=== PATIENT | male | born 1965 | race Caucasian/White ===

== ENCOUNTER 2024-10-22 09:04 | Outpatient (OUT) | payer OTHER, SELFPAY ==
--- OUTSIDE RECORDS SUMMARY | 2024-10-10 11:45 | XMS_ITS | Encounter Summary ---
Author Organization [facility] Address [address] [place] [address] Care Team Providers Care Clay House Worker Name Role Phone Mauricio Mccrary MD Primary Care Provider [phone] Reason for Visit * Reason Comments Follow-up polycythemia Other Patient states two c days after he had his phlebotomy he states he ended up in the ER with heaviness in legs and stiffness in his feet and lightheaded ness Leg Problem Patient states he balderas s been having leg weakness Encounter Details Date Type Department Care Team (Late st Contact Info) Description 10/10/2024 11:45 AM EDT Office Visit [facility] Part of [address] [address] Jacob Hall MD [address] [place] [address] Polycythemia (Primary Dx) Social History Tobacco Use Types Packs/Day Years Used Date Smoking Tobacco: Every Day Cigarettes Started: 2020; Last attempted to quit: 1978 Cigars Smokeless Tobacco: Never Comments:Occasional cigars c urrently Alcohol Use Standard Drinks/Week Comments Never 0 (1 standard drink = 0.6 oz pur e alcohol) [facility] Utilities Answer Date Recorded In the past 12 months has th e electric, gas, oil, or water company threatened to shut off services in your home? No 08/03/2024 AUDIT-C Answer Date Recorded Q1: How often do you have a drink containing alcohol? Never 09/20/2024 Q2: How many drinks containi ng alcohol do you have on a typical day when you are drinking? Patient does not drink Q3: How often do you have si x or more drinks on one occasion? Never 09/20/2024 PHQ-2 Answer Date Recorded PHQ-9 Total Score 0 08/03/2024 Hunger Vital Sign Answer Date Recorded Within the past 12 months, y ou worried that your food would run out before you got the money to buy more. Never true 08/04/19 25 Within the past 12 months, t he food you bought just didn't last and you didn't have money to get more. Never true 08/03/2024 PRAPARE - Transportation Answer Date Re corded In the past 12 months, has l ack of transportation kept you from medical appointments or from getting medications? No 07/24 In the past 12 months, has l ack of transportation kept you from meetings, work, or from getting things needed for daily living? No 08/03/2024 Housing Stability Vital Sign Answer Jonel e Recorded In the last 12 months, was t here a time when you were not able to pay the mortgage or rent on time? No 08/03/2024 In the past 12 months, how m any times have you moved where you were living? 1 08/03/2024 At any time in the past [address] [facility], were you homeless or living in a fpc (including now)? No 08/03/2024 Food Insecurity Answer Date Recorded Within the past 12 months, y ou worried that your food would run out before you got the money to buy more. 1 08/03/2024 Within the past 12 months, t he food you bought just didn't last and you didn't have money to get more. 1 08/03/2024 Interpersonal Safety Domain Source: IP Abuse Scr eening Answer Date Recorded Physical abuse Denies 07/13/2024 Verbal abuse Denies 07/13/2024 Emotional abuse Denies 07/13/2024 Financial abuse Denies 07/13/2024 Sexual abuse Denies 07/13/2024 Sex and Gender Information Value Date Recorded Sex Assigned at Not on file Legal Sex Male 11:47 AM EST Gender Identity Not on file Sexual Orientation Not on file documented as of this encounter Last Filed Vital Signs Vital Sign Reading Time Taken Comments Blood Pressure 153/99 10/10/2024 12:36 PM EDT Pulse 105 10/10/2024 12:36 PM EDT Temperature 36.7 C (98 F) 10/10/2024 12:36 PM EDT Respiratory Rate 18 10/10/2024 12:36 PM EDT Oxygen Saturation - - Inhaled Oxygen Concentration - - Weight 78.9 kg (174 lb) 10/10/2024 12:36 PM EDT Height - - Body Mass Index 26.46 09/20/2024 9:52 AM EDT documented in this encounter Patient Instructions * Patient Instructions* Jacob Hall MD - 10/10/2024 1:02 PM EDT Therapeutic phlebotomy once soon RV 2 months with CBC and carboxyhemoglobin level before RV documented in this encounter Progress Notes * Jacob Hall MD - 10/14/2024 7:18 PM EDT Images from the original note were not included. _ Chief Complaint Patient presents with Follow-up polycythemia Other Patient states two cdays after he had his phlebotomy he states he ended up in the ER with heavinessin legs and stiffness in his feet and lightheaded ness Leg Problem Patient states he has been having leg weakness DIAGNOSIS: Severe polycythemia. Likely reactive polycythemia. Chronic heavy tobacco abuse. 3 to 4 packs/day for 40 years. Quit 3 years ago. Current cigar smoker. Chest pain. Multiple comorbidities as listed CURRENT THERAPY: Therapeutic phlebotomy Advised to quit smoking BRIEF CASE HISTORY: Mr. Sanchez Brasher is a very pleasant 59 y.o. male with history of multiple co morbidities as listed. Patient is referred for evaluation and further management of polycythemia. Patient is having increasing weakness and fatigue over the last year. Patient had multiple cardiac events. He had VA and had cardiac intervention at the [facility]. During his workup he was noted to have elevated hemoglobin level last year. Follow-up labs recently showed persistent elevation of red blood cells. Patient having increasing weakness and fatigue. He has occasional dizziness. He feels foggy brain. No visual disturbances. No numbness or weakness of the extremities. Patient used to smoke 3 to 4 packs/day for the last 40 years. He switched to cigars 3 years ago. Hequit alcohol as well.. INTERIM HISTORY: Seen for follow-up polycythemia. Workup showed normal erythropoietin and negative JAK2 gene mutation. He had therapeutic phlebotomy few times over the last month. He continued to have shortness of breath. No headaches. The patient complains of left-sided chest pain mainly in the left lower chest cage. No trauma. Painincreased with breathing. No hemoptysis. PAST MEDICAL HISTORY: has a past medical history of Carotid artery stenosis, CVA (cerebral vascularaccident) (HCC), DM (diabetes mellitus) (HCC), VA (myocardial infarction) (HCC), Neuropathy, and TIA (transient ischemic attack). PAST SURGICAL HISTORY: has a past surgical history that includes IR TRANSCATHETER PLACEMENT INTRAVASCULAR STENT COMMON CAROTID ARTERY OR INNOMINATE ARTERY (Left, 07/2023); Carotid endarterectomy (Left, 2017); angioplasty (Right, 2021); and Coronary angioplasty with stent. CURRENT MEDICATIONS: has a current medication list which includes the following prescription(s): aspirin, clopidogrel, rosuvastatin, losartan, metformin, and metoprolol succinate. ALLERGIES: is allergic to environmental/seasonal. FAMILY HISTORY: Brother had throat cancer. Otherwise negative for any hematological or oncological conditions. SOCIAL HISTORY: reports that he has been smoking cigars and cigarettes. He started smoking about 4 years ago. He has never used smokeless tobacco. He reports that he does not drink alcohol and does not use drugs. REVIEW OF SYSTEMS: General: Positive for weakness and fatigue. No unanticipated weight loss or decreased appetite. No fever or chills. Eyes: No blurred vision, eye pain or double vision. Ears: No hearing problems or drainage. No tinnitus. Throat: No sore throat, problems with swallowing or dysphagia. Respiratory: No cough, sputum or hemoptysis. No shortness of breath. No pleuritic chest pain. Cardiovascular: No chest pain, orthopnea or PND. No lower extremity edema. No palpitation. Gastrointestinal: No problems with swallowing. No abdominal pain or bloating. No nausea or vomiting. No diarrhea or constipation. No GI bleeding. Genitourinary: No dysuria, hematuria, frequency or urgency. Musculoskeletal: No muscle aches or pains. No limitation of movement. No back pain. No gait disturbance, No joint complaints. Dermatologic: No skin rashes or pruritus. No skin lesions or discolorations. Psychiatric: No depression, anxiety, or stress or signs of schizophrenia. No change in mood or affect. Hematologic: No history of bleeding tendency. No bruises or ecchymosis. No history of clotting problems. Infectious disease: No fever, chills or frequent infections. Endocrine: No polydipsia or polyuria. No temperature intolerance. Neurologic: No headaches or dizziness. No weakness or numbness of the extremities. No changes in balance, coordination, memory, mentation, behavior. Allergic/Immunologic: No nasal congestion or hives. No repeated infections. PHYSICAL EXAM: The patient is not in acute distress. Vital signs: Blood pressure (!) 153/99, pulse (!) 105, temperature 98 ??F (36.7 ??C), temperature source Temporal, resp. rate 18, weight 78.9 kg (174 lb). General appearance - well appearing, not in pain or distress Mental status - good mood, alert and oriented Eyes - pupils equal and reactive, extraocular eye movements intact Ears - bilateral TM's and external ear canals normal Nose - normal and patent, no erythema, discharge or polyps Mouth - mucous membranes moist, pharynx normal without lesions Neck - supple, no significant adenopathy Lymphatics - no palpable lymphadenopathy, no hepatosplenomegaly Chest - clear to auscultation, no wheezes, rales or rhonchi, symmetric air entry Heart - normal rate, regular rhythm, normal S1, S2, no murmurs, rubs, clicks or gallops Abdomen - soft, nontender, nondistended, no masses or organomegaly Neurological - alert, oriented, normal speech, no focal findings or movement disorder noted Musculoskeletal - no joint tenderness, deformity or swelling Extremities - peripheral pulses normal, no pedal edema, no clubbing or cyanosis Skin - normal coloration and turgor, no rashes, no suspicious skin lesions noted Review of Diagnostic data: Lab Results Component Value Date WBC 10.7 09/20/2024 HGB 18.5 (H) 09/20/2024 HCT 54.3 (HH) 09/20/2024 MCV 90.7 09/20/2024 PLT 237 09/20/2024 Chemistry Component Value Date/Time NA 137 09/20/2024 0953 K 4.2 09/20/2024 0953 CL 100 09/20/2024 0953 CO2 24 09/20/2024 0953 BUN 11 09/20/2024 0953 CREATININE 0.9 09/20/2024 0953 Component Value Date/Time CALCIUM 9.8 09/20/2024 0953 ALKPHOS 113 08/04/2024 0823 AST 16 08/04/2024 0823 ALT 15 08/04/2024 0823 BILITOT 0.5 08/04/2024 0823 @[facility] IMPRESSION: Severe polycythemia. Likely reactive polycythemia. Chronic heavy tobacco abuse. 3 to 4 packs/day for 40 years. Quit 3 years ago. Current cigar smoker. Chest pain. Multiple comorbidities as listed PLAN: Records, labs and images were reviewed and discussed with the patient. I explained to the patient the nature of this problem with polycythemia and underlying cause of management plan. Patient is symptomatic from polycythemia and he felt slightly better after therapeutic phlebotomy 2 weeks ago. Will do therapy phlebotomy again soon due to his symptoms. Discussed the concern about underlying etiology. Further workup was done. JAK2 gene mutation is negative. Erythropoietin is normal. Carboxyhemoglobin level is extremely high. Explained to the patient that these findings are consistent with reactive polycythemia. Recommendations to quit tobacco abuse. Will continue doing therapeutic phlebotomy to control hemoglobin level. He will continue Plavix. I am concerned about his left lower chest pain since it is persistent for the last few weeks. Especially with his underlying heavy chronic tobacco abuse. CT scan was negative. He will follow up with PCP. Patient's questions were answered to the best of his satisfaction and he verbalized full understanding and agreement. Jacob Nixon MD [facility] This note is created with the assistance of a speech recognition program. While intending to generate a document that actually reflects the content of the visit, the document can still have some errors including those of syntax and sound a like substitutions which may escape proof reading. It such instances, actual meaning can be extrapolated by contextual diversion. documented in this encounter Plan of Treatment Upcoming Encounters Date Type Department Care Team (Latest Contact Info) Description 10/22/2024 12:30 PM EDT Hospital Encounter [facility] [address] [place] [address] 11/12/2024 10:40 AM EDT Office Visit [facility] [address] [place] [address] Lanie Mansfield, FINANCE ACCOUNTING INTERNSHIP - WAFER MACHINE OPERATOR [address] [place] [address] 3 mo 12/12/2024 1:15 PM EDT Office Visit [facility] Part of [address] [address] Joao Ross MD [address] [place] [address] F/U 02/06/2025 10:45 AM EDT Office Visit [facility] Part of [address] [place] [address] Nabil Calix MD [address] [place] [address] [address] [place] [id number] 6 month follow up; PAD, MARY 02/19/2025 10:00 AM EDT Office Visit [facility] Annual Giving Manager [address] [place] [address] Pepe Pal DO [address] [place] [address] 6 month f/u documented as of this encounter Visit Diagnoses Diagnosis Polycythemia- Primary Polycythemia vera documented in this encounter Care Teams Clay House Worker Relationship Specialty Start Date End Date Back, MD Maruicio [address] [place] [address] PCP - General Internal Medicine 07/31/24 documented as of this encounter
--- OUTSIDE RECORDS SUMMARY | 2024-10-22 09:10 | XMS_ITS | Encounter Summary ---
Author Organization [facility] Address [address] [place] [address] Care Team Providers Care Forestry Instructor Name Role Phone Mauricio Mccrary MD Primary Care Provider [phone] Encounter Details Date Type Department Care Team (Late st Contact Info) Description 10/10/2024 Orders Only [facility] Part of [address] [address] Jacob Hall MD [address] [place], [place] [id number] Polycythemia (Primary Dx) Social History Tobacco Use Types Packs/Day Years Used Date Smoking Tobacco: Every Day Cigarettes Started: 2020; Last attempted to quit: 1978 Cigars Smokeless Tobacco: Never Comments:Occasional cigars c urrently Alcohol Use Standard Drinks/Week Comments Never 0 (1 standard drink = 0.6 oz pur e alcohol) [facility] Utilities Answer Date Recorded In the past 12 months has [employer], gas, oil, or water [employer] threatened to shut off services in your [...] any time in the past 12 m [facility], were you homeless or living in a [facility] (including now)? No 08/03/2024 Food Insecurity Answer [...] on file documented as of this encounter Plan of Treatment Upcoming Encounters Date Type Department Care Team (Latest Contact Info) Description 10/22/2024 12:30 PM EDT Hospital Encounter [facility] [address] [place] [address] 11/12/2024 10:40 AM EDT Office Visit [facility] [address] [place] [address] Lanie Mansfield, JANITOR HELPER - HAND SCREEN PRINTER [address] [place] [address] 3 mo 12/12/2024 1:15 PM EDT Office Visit [facility] Part of [address] [address] Joao Ross MD [address] [place] [address] F/U 02/06/2025 10:45 AM EDT Office Visit [facility] Part of [address] [place] [address] Nabil Calix MD [address] [place] [address] [address] [place] [address] 6 month follow up; PAD, MARY 02/19/2025 10:00 AM EDT Office Visit [facility] Barbed Wire Machine Operator [address] [place] [address] Pepe Pal DO [address] [place] [address] 6 month f/u Scheduled Orders Name Type Priority Associated Diagnoses Orde r Schedule CBC with Auto Differential Lab Routine Polycythemia Expected: 10/10/2024 (Approximate), Expires: 10/10/2025 Carboxyhemoglobin Lab Routine Polycythemia Expected: 10/10/2024 (Approximate), Expires: 10/10/2025 documented as of this encounter Visit Diagnoses Diagnosis Polycythemia- Primary Polycythemia vera documented in this encounter Care Teams Forestry Instructor Relationship Specialty Start Date End Date Back, MD Mauricio [address] [place] [address] PCP - General Internal Medicine 07/31/24 documented as of this encounter
--- OUTSIDE RECORDS SUMMARY | 2024-10-22 09:10 | XMS_ITS | Encounter Summary ---
Author Organization [facility] Address [facility] [place] [address] Care Team Providers Care Patient Care Representative Name Role Phone System, Provider Not In Primary Care Provider Un available Encounter Details Date Type Department Care Team (Latest Contact Info) Description 06/30/2020 Transcribe Orders [facility] [address] [place] [id number] Lurdes Esquivel MA Special screening for malignant neoplasms, colon (Primary Dx) Social History Tobacco Use Types Packs/Day Years Used Date Smoking Tobacco: Every Day Cigarettes Smokeless Tobacco: Never Alcohol Use Standard Drinks/Week Comments Yes 0 (1 standard drink = 0.6 oz pur e alcohol) 1 time a month Sex and Gender Information Value Date Recorded Sex Assigned at Not on file Legal Sex Male 9:54 PM EDT Gender Identity Not on file Sexual Orientation Not on file documented as of this encounter Plan of Treatment Not on file documented as of this encounter Visit Diagnoses Diagnosis Special screening for malignant neoplasms, colon- Primary documented in this encounter Care Teams Patient Care Representative Relationship Specialty Start Date End Date System, Provider Not In PCP - General 06/27/20 documented as of this encounter
--- OUTSIDE RECORDS SUMMARY | 2024-10-22 09:10 | XMS_ITS | Clinical Summary ---
Author Organization [facility] Address [address] [place] [address] Care Team Providers Care Wedger Machine Name Role Phone AlvinoGreg gonzalez Primary Care Provider Allergies Active Allergy Reactions Criticality Noted Date Comments *Seasonal Runny Nose,Itchy Eyes 11/07/2019 Medications clopidogrel 75 MG tablet Take 1 tablet by mouth daily. Active aspirin 81 MG Chew Tab chewable tablet Chew 1 tablet daily. Active metFORMIN 500 MG tablet Take 1 tablet by mouth 2 times daily. Active carveDILOL 6.25 MG tablet Take 1 tablet by mouth 2 times daily. Active losartan 50 MG tablet Take 1 tablet by mouth daily. Active gabapentin 100 MG capsule Take 1 capsule by mouth 3 times daily. 90 capsule 3 04/30/2020 Active Atorvastatin 40 MG tablet Take 2 tablets by mouth daily. Active Empagliflozin 25 MG tablet Take 0.4 tablets by mouth daily. Active Metoprolol succinate 100 MG tablet XL Take 1 tablet by mouth daily. Active sacubitril-vals jose (Entresto) 24-26 MG tablet Take 1 tablet by mouth 2 times daily. Active Spironolactone 25 MG tablet Take 1 tablet by mouth daily. Active Brilinta 90 MG tablet TAKE ONE TABLET BY MOUTH TWO TIMES A DAY for 714 doses 12/23/2021 Active Dulaglutide (TRULICITY SC) Inject under the skin. Active Active Problems No known active problems Family History Medical History Relation Name Comments Cancer- Other Brother Heart Disease - Other Brother Lipid Disorder Brother Heart Disease - Other Father Hypertension Father Lipid Disorder Father Cancer- Other Maternal Grandfather Heart Disease - Other Maternal Grandfather Lipid Disorder Maternal Grandfather Heart Disease - Other Maternal Grandmother Lipid Disorder Maternal Grandmother Heart Disease - Other Mother Lipid Disorder Mother Heart Disease - Other Paternal Grandfather Lipid Disorder Paternal Grandfather Heart Disease - Other Paternal Grandmother Lipid Disorder Paternal Grandmother Cancer- Other Paternal Uncle Hypertension Sister Lipid Disorder Sister Relation Name Status Comments Brother Father Maternal Grandfather Maternal Grandmother Mother Paternal Grandfather Paternal Grandmother Paternal Uncle Sister Social History Tobacco Use Types Packs/Day Years Used Date Smoking Tobacco: Former Cigarettes 1.5 43 1 9 - 2021 Smokeless Tobacco: Never Alcohol Use Standard Drinks/Week Comments Not Currently 0 (1 standard drink = 0.6 oz pur e alcohol) Sex and Gender Information Value Date Recorded Sex Assigned at Not on file Legal Sex Male 5:45 AM EST Gender Identity Not on file Sexual Orientation Not on file Last Filed Vital Signs Vital Sign Reading Time Taken Comments Blood Pressure 125/78 04/30/2020 9:08 AM EST Pulse 84 04/30/2020 9:08 AM EST Temperature - - Respiratory Rate - - Oxygen Saturation - - Inhaled Oxygen Concentration - - Weight 91.2 kg (201 lb) 04/30/2020 9:08 AM EST Height 172.7 cm (5' 8 ) 04/30/2020 9:08 AM EST Body Mass Index 30.56 04/30/2020 9:08 AM EST Plan of Treatment Health Maintenance Due Date Last Done Comments HEPATITIS C VIRUS SCREENING 1963 POTASSIUM 1963 TETANUS 1963 HIV SCREENING DISCUSSION 07/26/1978 TDAP (ADULT) 07/26/1982 LIPID SCREENING 2003 COLORECTAL CANCER SCREENING DISCUSSION 07/26/2008 ZOSTER (SHINGLES) VACCINE (1 of 2) 07/26/2013 PROSTATE CANCER SCREENING DISCUSSION 07/26/2018 PNEUMOCOCCAL VACCINE SERIES (2 of 2 - PCV) 03/05/2021 03/05/2020 COVID-19 VACCINE (3 - season) 2023 09/16/2020, 08/20/2020 INFLUENZA VACCINE (Season Ended) 2024 RSV VACCINE (1 - 1-dose 75+ series) 07/26/2038 PNEUMOCOCCAL VACCINE SERIES Discontinued 03/05/2020 HEP B VACCINE Aged Out No longer joan oropeza based on patient's age to complete this topic Insurance [facility] [employer] Care Teams Wedger Machine Relationship Specialty Start Date End Date Greg De Oliveira DO PCP - General Family Medicine 04/30/20
--- OUTSIDE RECORDS SUMMARY | 2024-10-22 09:10 | XMS_ITS | Clinical Summary ---
Author Organization [facility] Address [address] [place] [address] Care Team Providers Care Roustabout Crew Pusher Name Role Phone Mauricio Mccrary MD Primary Care Provider [phone] Allergies Active Allergy Reactions Criticality Noted Date Comments Environmental/Seasonal Itching,Other (See Comments) 11/07/2019 Medications aspirin 81 MG chewable tablet Take 1 tablet by mouth daily Active metoprolol succinate (TOPROL XL) 25 MG extended release tablet Take 1 tablet by mouth daily 30 tablet 5 5 Active Additional Information Patient not taking.Reported on 10/10/2024 losartan (COZAAR) 50 MG tablet Take 1 tablet by mouth daily 30 tablet 5 5 Active Additional Information Patient not taking.Reported on 10/10/2024 metFORMIN (GLUCOPHAGE) 500 MG tabletIndicatio ns:Controlled type 2 diabetes mellitus without complication, without long-term current use of insulin (HCC) Take 1 tablet by mouth 2 times daily (with meals) 60 tablet 5 5 Active Additional Information Patient not taking.Reported on 10/10/2024 clopidogrel (PLAVIX) 75 MG tablet Take 1 tablet by mouth nightly 90 tablet 3 5 Active Additional Information Patient not taking.Reported on 10/10/2024 rosuvastatin (CRESTOR) 20 MG tablet Take 1 tablet by mouth daily 90 tablet 3 5 Active Additional Information Patient not taking.Reported on 10/10/2024 Active Problems Problem Noted Date Diagnosed Date Tobacco abuse 08/22/2024 Tobacco abuse counseling 08/22/2024 Microalbuminuria 08/06/2024 Mixed hypercholesterolemia and hypertriglyceride gilberto 08/03/2024 Assessment & Plan (08/03/2024 10:51 AM EDT): Start back on Crestor 5 mg daily. Fasting labs anytime. Orders: Comprehensive Metabolic Panel; Future Lipid Panel; Future TSH reflex to FT4; Future rosuvastatin (CRESTOR) 5 MG tablet; Take 1 tablet by mouth nightly Primary hypertension 08/03/2024 Assessment & Plan (08/03/2024 10:51 AM EDT): Start back on Toprol XL 25 mg by mouth daily. Orders: Comprehensive Metabolic Panel; Future Polycythemia 08/03/2024 Assessment & Plan (08/03/2024 10:51 AM EDT): Refer to Dr. Arredondo to evaluate and treat polycythemia. Orders: Philippe Brar MD, Hematology/Oncology, [place] CBC with Auto Differential; Future PVD (peripheral vascular disease) 08/03/2024 Assessment & Plan (08/03/2024 10:51 AM EDT): Refer to Dr. Carlos to resume PVD observation. Orders: Nabil Díaz MD, Vascular Medicine, [place] H/O: CVA (cerebrovascular accident) 08/03/2024 Assessment & Plan (08/03/2024 10:51 AM EDT): Continue on aspirin. Diabetes mellitus type 2 with hyperosmolarity, u ncontrolled 08/03/2024 Assessment & Plan (08/03/2024 10:51 AM EDT): Hgb1C off medication (off medication for 6 months). Avery states he has lost a lot of weight and watching his diet a lot better. Orders: Comprehensive Metabolic Panel; Future Hemoglobin A1C; Future Albumin/Creatinine Ratio, Urine; Future Encounters Date Type Department Care Team Description 10/22/2024 12:30 PM EDT Hospital Encounter [facility] [address] [place] [address] 10/10/2024 11:45 AM EDT Office Visit [facility] Part of [address] [address] Jacob Hall MD Polycythemia (Primary Dx) 10/10/[address] [facility] Part of [address] [address] Jacob Hall MD Polycythemia (Primary Dx) 10/01/2024 Telephone [facility] Care [facility] [address] [place] [address] Mauricio Mccrary MD Other 09/20/2024 9:43 AM EDT - 09/20/2024 1:46 PM EDT Emergency [facility] Emergency Department [address] [place] [address] Marilyn Nieto MD Chest pain, unspecified type (Primary Dx); Dyspnea, unspecified type; Polycythemia Discharge Disposition: Home or Self Care 09/20/2024 Abstract [facility] Duplicating Machine Mechanic [address] [place] [address] Glynn Fernandes MD 09/20/2024 Travel 09/18/2024 8:29 AM EDT - 09/18/2024 11:59 PM EDT Hospital Encounter [facility] [address] [place] [address] Polycythemia (Primary Dx) Discharge Disposition: Home or Self Care 09/13/[address] [facility] Part of [address] [address] Jacob Hall MD Polycythemia (Primary Dx); Chest wall pain; Tobacco abuse counseling; Tobacco abuse 09/12/2024 3:15 PM EDT Office Visit [facility] Part of [address] [address] Jacob Hall MD Polycythemia (Primary Dx); Chest wall pain 08/30/2024 Telephone [facility] [employer] [address] [place] [address] Pepe Pal DO Results 08/29/2024 Abstract [facility] [employer] Mechan[employer] [address] [place] [address] Pepe Pal DO 08/28/2024 12:30 PM EDT - 08/30/2024 11:59 PM EDT Hospital Encounter [facility] Non-Invasive Cardiology [address] [facility] [place] [address] Pepe Pal DO Cerebrovascular accident (CVA), unspecified mechanism (HCC); Cardiomyopathy, unspecified type (HCC); Shortness of breath Discharge Disposition: Home or Self Care 08/24/2024 8:32 AM EDT - 08/24/2024 11:59 PM EDT Hospital Encounter [facility] [address] [place] [address] Polycythemia Discharge Disposition: Home or Self Care 08/24/[address] [facility] Part of [address] [address] Paula Villeda RN Carboxyhemoglobin Level 08/23/2024 8:00 AM EDT Hospital Encounter [facility] Laboratory [address] [facility] [place] [address] Polycythemia Discharge Disposition: Home or Self Care 08/23/2024 8:00 AM EDT Hospital Encounter [facility] [address] [facility] [place] [address] Discharge Disposition: Home or Self Care 08/22/2024 1:15 PM EDT Office Visit [facility] Part of [address] [address] Jacob Hall MD Polycythemia (Primary Dx); Tobacco abuse; Tobacco abuse counseling 08/22/[address] [facility] Part of [address] [address] Jacob Hall MD 08/20/2024 8:30 AM EDT Office Visit [facility] [employer] [address] [place] [address] Pepe Pal DO Coronary artery disease involving [place] coronary artery of [place] heart without angina pectoris (Primary Dx); Cerebrovascular accident (CVA), unspecified mechanism (HCC); Cardiomyopathy, unspecified type (HCC); Shortness of breath; History of heart attack; History of PTCA; Mixed hypercholesterolemia and hypertriglyceridemia; PVD (peripheral vascular disease); Polycythemia; Diabetes mellitus type 2 with hyperosmolarity, uncontrolled ([facility]); H/O: CVA (cerebrovascular accident); Primary hypertension; Microalbuminuria; Cardiac arrest with ventricular fibrillation ([facility]) 08/16/2024 12:43 PM EDT - 08/18/2024 11:59 PM EDT Hospital Encounter [facility] Vascular Lab [address] [place] [address] PAD (peripheral artery disease) Discharge Disposition: Home or Self Care 08/16/2024 12:42 PM EDT - 08/18/2024 11:59 PM EDT Hospital Encounter [facility] Vascular Lab [address] [place] [address] PAD (peripheral artery disease) Discharge Disposition: Home or Self Care 08/16/2024 12:40 PM EDT - 08/18/2024 11:59 PM EDT Hospital Encounter [facility] Vascular Lab [address] [place] [address] Bilateral carotid artery stenosis Discharge Disposition: Home or Self Care 08/15/2024 Abstract [facility] [employer] [address] [place] [address] Pepe Pal DO 08/15/2024 Abstract [facility] [employer] [address] [place] [address] Pepe Pal DO 08/15/2024 Abstract [facility] [employer]plicating Machine Mechanic [address] [place] [address] Pepe Pal DO 08/15/2024 Abstract [facility] [employer]plicating Machine Mechanic [address] [facility] [place] [address] Pepe Pal DO 08/15/2024 Abstract [facility] [address] [place] [address] Pepe Pal, DO 08/15/2024 [facility] [address] [place] [address] Pepe Pal, DO 08/15/2024 Orders Only [facility] [address] [place] [address] ProviderJohnathan MD 08/15/2024 [facility] [address] [place] [address] Pepe Pal, DO 08/15/2024 [facility] [address] [place] [address] Pepe Pal, DO 08/15/2024 Abstract [facility] [address] [facility] [place] [address] Pepe Pal, DO 08/15/2024 [facility] [address] [place] [place] [address] Pepe Pal, DO 08/14/2024 1:41 PM EDT - 08/16/2024 11:59 PM EDT Hospital Encounter [facility] Ultrasound [address] [place] [address] Mauricio Mccrary MD Breast nodule Discharge Disposition: Home or Self Care 08/14/2024 1:41 PM EDT - 08/16/2024 11:59 PM EDT Hospital Encounter [facility] Mammography [address] [place] [address] Mauricio Mccrary MD Radiologist, [facility] Gen Breast tenderness in male Discharge Disposition: Home or Self Care 08/14/2024 Results Follow-Up [facility] [address] [place] [address] Mauricio Mccrary MD 08/09/2024 Orders Only [facility] [address] [place] [address] Mauricio Mccrary MD Polycythemia (Primary Dx) 08/09/2024 Orders Only [facility] Internal Medicine [address] [place] [address] Mauricio Mccrary MD Neoplasm of breast, primary tumor staging category t4b: ulceration and/or ipsilateral satellite nodules and/or edema (including peau d'orange) of skin, excluding inflammatory carcinoma, left (HCC); Breast nodule 08/09/2024 Telephone [facility] [address] [place] [address] Mauricio Mccrary MD Orders 08/08/2024 10:30 AM EDT Office Visit [facility] Part of [address] [place] [address] Nabil Calix MD Bilateral carotid artery stenosis (Primary Dx); Occlusion of right vertebral artery; PAD (peripheral artery disease) 08/06/2024 1:00 PM EDT - 08/06/2024 11:59 PM EDT Hospital Encounter [facility] OP Nursing [address] [place] [address] Discharge Disposition: Home or Self Care 08/06/2024 Orders Only [facility] Internal Medicine [address] [place] [address] Mauricio Mccrary MD Controlled type 2 diabetes mellitus without complication, without long-term current use of insulin (HCC) (Primary Dx) 08/06/2024 Orders Only [facility] Internal Medicine [address] [place] [address] Mauricio Mccrary MD Microalbuminuria (Primary Dx) 08/06/2024 Results Follow-Up [facility] Internal Medicine [address] [place] [address] Mauricio Mccrary MD 08/04/2024 8:19 AM EDT - 08/04/2024 11:59 PM EDT Hospital Encounter [facility] Laboratory [address] [place] [address] Diabetes mellitus type 2 with hyperosmolarity, uncontrolled (HCC); Polycythemia; Light headedness; Prostate cancer screening; Mixed hypercholesterolemia and hypertriglyceridemia; Primary hypertension Discharge Disposition: Home or Self Care 08/03/2024 10:15 AM EDT Office Visit [facility] Primary Care [facility] [address] [place] [address] Mauricio Mccrary MD Coronary artery disease involving [place] coronary artery of [place] heart without angina pectoris (Primary Dx); H/O: CVA (cerebrovascular accident); PVD (peripheral vascular disease); Polycythemia; Primary hypertension; Mixed hypercholesterolemia and hypertriglyceridemia; Light headedness; Diabetes mellitus type 2 with hyperosmolarity, uncontrolled (HCC); Prostate cancer screening; Subcutaneous nodule of breast; Breast tenderness in male; Smoker from Last 3 Months Family History Medical History Relation Name Comments Heart Disease Brother 1 Lymphoma Brother 1 Heart Disease Brother 2 Heart Attack Father Heart Disease Father Heart Attack Mother Heart Disease Mother Relation Name Status Comments Brother 1 Brother 2 Alive Father Mother Social History Tobacco Use Types Packs/Day Years Used Date Smoking Tobacco: Every Day Cigarettes Started: 2020; Last attempted to quit: 1978 Cigar Smokeless Tobacco: Never Comments:Occasional cigars c urrently Alcohol Use Standard Drinks/Week Comments Never 0 (1 standard drink = 0.6 oz pur e alcohol) [facility] Utilities Answer Date Recorded In the past 12 months has [employer], gas, oil, or water [employer] threatened to shut off services in your [...] any time in the past [address] [facility], were you homeless or living in a skilled nursing (including now)? No 08/03/2024 Food Insecurity Answer [...] 18 10/10/2024 12:36 PM EDT Oxygen Saturation 95% 09/20/2024 12:58 PM EDT Inhaled Oxygen Concentration - - Weight 78.9 kg (174 lb) 10/10/2024 12:36 PM EDT Height 172.7 cm (5' 8 ) 09/20/2024 9:52 AM EDT Body Mass Index 26.46 09/20/2024 9:52 AM EDT Plan of Treatment Upcoming Encounters Date Type Department Care Team (Latest Contact Info) Description 10/22/2024 12:30 PM EDT Hospital Encounter [facility] [address] [place] [address] 11/12/2024 10:40 AM EDT Office Visit [facility] Primary Care [facility] [address] [place] [address] Lanie Mansfield, MANAGER PERSONNEL SELECTION - PRODUCTION TEAM MANAGER [address] [place] [address] 3 mo 12/12/2024 1:15 PM EDT Office Visit [facility] Part of [address] [address] Joao Ross MD [address] [place] [address] F/U 02/06/2025 10:45 AM EDT Office Visit [facility] Part of [address] [place] [address] Nabil Calix MD [address] [place] [address] [address] [place] [address] 6 month follow up; PAD, MARY 02/19/2025 10:00 AM EDT Office Visit [facility] Duplicating Machine Mechanic [address] [place] [address] Pepe Pal DO [address] [place] [address] 6 month f/u Health Maintenance Due Date Last Done Comments Diabetic foot exam 07/26/1973 HIV screen 07/26/1978 Diabetic retinal exam 07/26/1981 Hepatitis C screen 07/26/1981 DTaP/Tdap/Td vaccine (1 - Tdap) 07/26/1982 Colonoscopy 07/26/2008 Colorectal Cancer Screen 07/26/2008 FIT/FOBT: Average risk 07/26/2008 Fecal-DNA (Cologuard): Average risk 07/26/2008 Sigmoidoscopy/CT colonography 07/26/2008 Shingles vaccine (1 of 2) 07/26/2013 Pneumococcal 50+ years Vaccine (2 of 2 - PCV) 03/05/2021 03/05/2020 Respiratory Syncytial Virus (RSV) or age 60 yrs+ (1 - Risk 60-74 years 1-dose series) 2023 COVID-19 Vaccine (1 - 2023-2 5 season) 2023 Flu vaccine (Season Ended) 2024 Depression Screen 08/03/2025 08/03/2024, 08/03/2024 A1C test (Diabetic or Prediabetic) 08/04/2025 08/04/2024 Diabetic Alb to Cr ratio (uACR) test 08/04/2025 08/04/2024 Lipids 08/04/2025 08/04/2024 GFR test (Diabetes, CKD 3-4, OR last GFR 15-59) 09/20/2025 09/20/2024, 08/04/2024, 07/13/2024 Diabetes screen Discontinued 08/04/2024 Hepatitis A vaccine Aged Out No longe r eligible based on patient's age to complete this topic Hepatitis B vaccine Aged Out No longe r eligible based on patient's age to complete this topic Hib vaccine Aged Out No longer eligi ble based on patient's age to complete this topic Meningococcal (ACWY) vaccine Aged Out No longer eligible based on patient's age to complete this topic Meningococcal B vaccine Aged Out No l onger eligible based on patient's age to complete this topic Polio vaccine Aged Out No longer elig ible based on patient's age to complete this topic Procedures Procedure Name Priority Date/Time Associated Diagnosis Comments CT CHEST W CONTRAST STAT 09/20/2024 11:11 AM EDT TROPONIN Timed 09/20/2024 10:56 AM EDT XR CHEST PORTABLE STAT 09/20/2024 10:03 AM EDT EKG 12-LEAD STAT 09/20/2024 9:56 AM EDT D-DIMER, QUANTITATIVE STAT 09/20/2024 9:53 AM EDT TROPONIN STAT 09/20/2024 9:53 AM EDT BASIC METABOLIC PANEL STAT 09/20/2024 9:53 AM EDT CBC WITH AUTO DIFFERENTIAL STAT 09/20/2024 9:53 AM EDT ECHO (TTE) COMPLETE W/ BUBBLE STUDY Routine 08/28/2024 1:40 PM EDT Cerebrovascular accident (CVA), unspecified mechanism (HCC) Cardiomyopathy, unspecified type (HCC) Shortness of breath CARBOXYHEMOGLOBIN Routine 08/24/2024 9:01 AM EDT BLOOD GAS, VENOUS Routine 08/24/2024 8:58 AM EDT CBC WITH AUTO DIFFERENTIAL Routine 08/23/2024 8:15 AM EDT Polycythemia JAK2 GENE MUTATION, QUANTITATIVE Routine 08/23/2024 8:15 AM EDT Polycythemia ERYTHROPOIETIN Routine 08/23/2024 8:15 AM EDT Polycythemia CBC WITH AUTO DIFFERENTIAL Routine 08/23/2024 8:13 AM EDT Polycythemia VAS ANKLE BRACHIAL INDEX (CHRIS) Routine 08/16/2024 3:17 PM EDT PAD (peripheral artery disease) VAS DUP LOWER EXTREMITY ARTERIES RIGHT Routine 08/16/2024 3:17 PM EDT PAD (peripheral artery disease) VAS DUP CAROTID BILATERAL Routine 08/16/2024 3:17 PM EDT Bilateral carotid artery stenosis US BREAST LIMITED LEFT Routine 2:25 PM EDT Breast nodule JOSE KIMBERLEY DIGITAL DIAGNOSTIC BILATERAL Routine 08/14/2024 2:14 PM EDT Breast tenderness in male COMPREHENSIVE METABOLIC PANEL Routine 08/04/2024 8:23 AM EDT Primary hypertension Mixed hypercholesterolemia and hypertriglyceridemia Diabetes mellitus type 2 with hyperosmolarity, uncontrolled (HCC) HEMOGLOBIN A1C Routine 08/04/2024 8:23 AM EDT Diabetes mellitus type 2 with hyperosmolarity, uncontrolled (HCC) LIPID PANEL Routine 08/04/2024 8:23 AM EDT Mixed hypercholesterolemia and hypertriglyceridemia TSH REFLEX TO FT4 Routine 08/04/2024 8:23 AM EDT Mixed hypercholesterolemia and hypertriglyceridemia Light headedness PSA SCREENING Routine 08/04/2024 8:23 AM EDT Prostate cancer screening CBC WITH AUTO DIFFERENTIAL Routine 08/04/2024 8:23 AM EDT Polycythemia Light headedness ALBUMIN/CREATININE RATIO, URINE Routine 08/04/2024 8:23 AM EDT Diabetes mellitus type 2 with hyperosmolarity, uncontrolled (HCC) from Last 3 Months Results * CT CHEST W CONTRAST (09/20/2024 11:11 AM EDT) Anatomical Region Laterality Modality Chest Computed Tomogra phy 09/20/2024 11:1 1 AM EDT Impressions 09/20/2024 12:38 PM EDT Impression: No evidence of pulmonary embolism or aortic dissection. Coronary artery stents in place. Early centrilobular emphysematous changes in the upper lobes. Minimal degenerative change in the spine. Narrative 09/20/2024 12:38 PM EDT Clinical Indication: 59-year-old male with chest pain and shortness of breath. History of polycythemia and coronary artery stents. Technique: CT angiography of the chest performed with pulmonary embolism protocol. Findings: Lungs: No evidence of pulmonary embolism. Early centrilobular emphysematous changes are noted in the upper lobes. No consolidation, mass, or pneumothorax. Mediastinum and Heart: No aortic dissection. Coronary artery stents are present. No significant mediastinal lymphadenopathy. Pleura: No pleural effusion or thickening. Bones: Minimal degenerative changes of the spine. Upper Abdomen: Limited evaluation; no acute findings. Procedure Note Clarence Monte Jr., MD - 09/20/2024 Clinical Indication: 59-year-old male with chest pain and shortness of breath. History of polycythemia and coronary artery stents. Technique: CT angiography of the chest performed with pulmonary embolism protocol. Findings: Lungs: No evidence of pulmonary embolism. Early centrilobular emphysematouschanges are noted in the upper lobes. No consolidation, mass, or pneumothorax. Mediastinum and Heart: No aortic dissection. Coronary artery stents are present. No significant mediastinal lymphadenopathy. Pleura: No pleural effusion or thickening. Bones: Minimal degenerative changes of the spine. Upper Abdomen: Limited evaluation; no acute findings. IMPRESSION: Impression: No evidence of pulmonary embolism or aortic dissection. Coronary artery stents in place. Early centrilobular emphysematous changes in the upper lobes. Minimal degenerative change in the spine. Marilyn Nieto MD IMG CT ORDERABLES Final Resu lt * Troponin (09/20/2024 10:56 AM EDT) Only the most recent of2 resultswithin the time period is included. Troponin, High Sensitivity 19 0 - 22 ng/L 09/20/2024 10:56 AM EDT [facility] Comment:High Sensitivity Tro ponin values cannot be compared with other Troponin methodologies. Blood BLOOD SPECIMEN / Unknown 09/20/2024 10:56 AM EDT 09/20/2024 11:01 AM EDT Marilyn Nieto MD CHEMISTRY ORDERABLES Final R esult [facility] [address] [place] [address], [facility] [phone] * XR CHEST PORTABLE (09/20/2024 10:03 AM EDT) Anatomical Region Laterality Modality Chest Computed Radiogr aphy 09/20/2024 10:0 3 AM EDT Impressions 09/20/2024 10:16 AM EDT Impression: No acute heart or lung disease identified. Narrative 09/20/2024 10:16 AM EDT EXAM: XR CHEST PORTABLE HISTORY: . Left anterior chest pain . COMPARISON: 07/13/2024 TECHNIQUE: Single view of the chest. FINDINGS: Heart is normal in size. Vascularity is unremarkable. Lungs are free of focal infiltrates. Grossly no bony abnormality is appreciated. EKG leads overlie the chest. Procedure Note Oswald Castle MD - 09/20/2024 EXAM: XR CHEST PORTABLE HISTORY: . Left anterior chest pain . COMPARISON: 07/13/2024 TECHNIQUE: Single view of the chest. FINDINGS: Heart is normal in size. Vascularity is unremarkable. Lungs arefree of focal infiltrates. Grossly no bony abnormality is appreciated. EKG leads overlie the chest. IMPRESSION: Impression: No acute heart or lung disease identified. us Marilyn Nieto MD IMG DIAGNOSTIC IMAGING ORDER [place] Final Result * EKG 12 Lead (09/20/2024 9:56 AM EDT) Pathologist [facility] Ventricular Rate 78 BPM [facility] RADIOLOG[facility] Atrial Rate 78 BPM [facility] RAD[facility] P-R Interval 170 ms [facility] W RADIOLOGY QRS Duration 102 ms [facility] W RADIOLOGY Q-T Interval 384 ms [facility] QTc Calculation (Bazett) 437 ms [facility] P [place] 68 degrees [facility] R [place] 51 degrees [facility] T [place] 41 degrees [facility] 09/20/2024 9:56 AM EDT Narrative [facility] - 09/21/2024 6:40 AM EDT Normal sinus rhythm with sinus arrhythmia Possible Left atrial enlargement Borderline ECG Procedure Note Mauricio Mccrary MD - 09/21/2024 Normal sinus rhythm with sinus arrhythmia Possible Left atrial enlargement Borderline ECG us Marilyn Nieto MD ECG ORDERABLES Final Result [facility] * (ABNORMAL) CBC with Auto Differential (09/20/2024 9:53 AM EDT) Only the most recent of4 resultswithin the time period is included. WBC 10.7 3.5 - 11.0 k/uL 09/20/2024 9:53 AM EDT [facility] RBC 5.99(H) 4.50 - 5.90 m/uL 09/20/2024 9:53 AM [facility] Hemoglobin 18.5(H) 13.5 - 17.5 g/dL 09/20/2024 9:53 AM [facility] Hematocrit 54.3(HH) 41.0 - 53.0 % 09/20/2024 9:53 AM [facility] MCV 90.7 80.0 - 100.0 fL 09/20/2024 9:53 AM [facility] MCH 30.9 26.0 - 34.0 pg 09/20/2024 9:53 AM [facility] MCHC 34.1 31.0 - 37.0 g/dL 09/20/2024 9:53 AM [facility] RDW 14.2 12.1 - 15.2 % 09/20/2024 9:53 AM [facility] Platelets 237 140 - 450 k/uL 09/20/2024 9:53 AM [facility] MPV 9.5 6.0 - 12.0 fL 09/20/2024 9:53 AM [facility] Neutrophils % 69 39 - 75 % 09/20/2024 9:53 AM ED [facility] Lymphocytes % 18 13 - 44 % 09/20/2024 9:53 AM [facility] Monocytes % 10(H) 5 - 9 % 09/20/2024 9:53 AM ED [facility] Eosinophils % 3 0 - 5 % 09/20/2024 9:53 AM ED [facility] Basophils % 0 0 - 2 % 09/20/2024 9:53 AM ED [facility] Immature Granulocytes % 0 0 - 5 % 09/20/2024 9:53 AM ED [facility] Neutrophils Absolute 7.36(H) 2.1 - 6.5 k/uL 09/20/2024 9:53 AM EDT [facility] Lymphocytes Absolute 1.93 1.00 - 4.80 k/uL 09/20/2024 9:53 AM EDT [facility] Monocytes Absolute 1.12(H) 0.00 - 1.00 k/uL 09/20/2024 9:53 AM EDT [facility] Eosinophils Absolute 0.30 0.00 - 0.40 k/uL 09/20/2024 9:53 AM EDT [facility] Basophils Absolute 0.01 0.00 - 0.20 k/uL 09/20/2024 9:53 AM EDT [facility] Immature Granulocytes Absolute 0.02 0.00 - 0.30 k/uL 09/20/2024 9:53 AM EDT [facility] Blood BLOOD SPECIMEN / Unknown 09/20/2024 9:53 AM EDT 09/20/2024 10:02 AM EDT us Marilyn Nieto MD HEMATOLOGY ORDERABLES Final Result [facility] [address] [place] [id number], [facility] [phone] * D-Dimer, Quantitative (09/20/2024 9:53 AM EDT) D-Dimer, Quant 0.45 0.00 - 0.59 ug/mL FEU 09/20/2024 9:53 AM EDT [facility] Comment: When combined with a low clinical probability, a D dimer value of <0.50 ug/mL FEU is considered negative for DVT and PE (negative predictive value of 98%, sensitivity of 97%). If this test is not being used to help rule out DVT and PE, then the following reference range should be utilized: 0.00 - 0.59 ug/mL FEU. The D-Dimer assay is intended for use as an aid in the diagnosis of venous thromboembolism (DVT and PE) and the results should be interpreted in conjunction with the patient's medical history, clinical presentation, and other findings. Elevated levels of D-dimer activity can be seen in any state of coagulation activation and is not recommended in patients with therapeutic dose anticoagulant therapy for >24 hours, fibrinolytic therapy within the previous 7 days, trauma or surgery within the previous 4 weeks, disseminated malignancies, aortic aneurysm, sepsis, severe infections, pneumonia, severe skin infections, liver cirrhosis, advanced age, coronary disease, diabetes, and . A very low percentage of patients with DVT may yield D-dimer results below the cutoff of 0.5 ug/mL FEU. This is known to be more prevalent in patients with distal DVT. Blood BLOOD SPECIMEN / Unknown 09/20/2024 9:53 AM EDT 09/20/2024 10:02 AM EDT us Marilyn Nieto MD HEMATOLOGY ORDERABLES Final Result [facility] [address] [place] [address], [facility] [phone] * (ABNORMAL) Basic Metabolic Panel (09/20/2024 9:53 AM EDT) Sodium 137 135 - 144 mmol/L 09/20/2024 9:53 AM EDT [facility] Potassium 4.2 3.7 - 5.3 mmol/L 09/20/2024 9:53 AM EDT [facility] Chloride 100 98 - 107 mmol/L 09/20/2024 9:53 AM EDT [facility] CO2 24 20 - 31 mmol/L 09/20/2024 9:53 AM EDT [facility] Anion Gap 13 9 - 17 mmol/L 09/20/2024 9:53 AM EDT [facility] Glucose 201(H) 70 - 99 mg/dL 09/20/2024 9:53 AM EDT [facility] BUN 11 8 - 23 mg/dL 09/20/2024 9:53 AM EDT [facility] Creatinine 0.9 0.7 - 1.2 mg/dL 09/20/2024 9:53 AM EDT [facility] Est, Glom Filt Rate >90 >60 mL/min/1.7 3m2 09/20/2024 9:53 AM EDT [facility] Comment: These results are not intended for use in patients <18 years of age. eGFR results are calculated without a race factor using the 2020 CKD-EPI equation. Careful clinical correlation is recommended, particularly when comparing to results calculated using previous equations. The CKD-EPI equation is less accurate in patients with extremes of muscle mass, extra-renal metabolism of creatine, excessive creatine ingestion, or following therapy that affects renal tubular secretion. Calcium 9.8 8.6 - 10.4 mg/dL 09/20/2024 9:53 AM EDT [facility] Blood BLOOD SPECIMEN / Unknown 09/20/2024 9:53 AM EDT 09/20/2024 10:02 AM EDT us Marilyn Nieto MD CHEMISTRY ORDERABLES Final R esult [facility] [address] [place] [address], [facility] [phone] * (ABNORMAL) ECHO (TTE) COMPLETE W/ BUBBLE STUDY (08/28/2024 1:40 PM EDT) IVSd 1.3(A) 0.6 - 1.0 cm [facility] CV CPACS LVIDd 4.0(A) 4.2 - 5.9 cm [facility] CV CPACS LVIDs 2.5 cm [facility] CV CPACS LVOT Diameter 2.3 cm [facility] CV CPACS LVPWd 1.3(A) 0.6 - 1.0 cm [facility] CV CPACS EF BP 59 55 - 100 % [facility] CV [facility]ACS LV Ejection Fraction A2C 57 % [facility] CV CPACS LV Ejection Fraction A4C 60 % [facility] CV CPACS LV EDV A2C 124 mL [facility] CV CPACS LV EDV A4C 136 mL [facility] CV CPACS LV EDV BP 132 67 - 155 mL [facility] CV CPACS LV ESV A2C 53 mL [facility] CV CPACS LV ESV A4C 54 mL [facility] CV CPACS LV ESV BP 55 22 - 58 mL [facility] CV CPACS LVOT Peak Gradient 3 mmHg [facility] CV CPACS LVOT Mean Gradient 1 mmHg BS CV CPACS LVOT SV 59.0 ml BS CV CPACS LVOT Peak Velocity 0.8 m/s BS CV CPACS LVOT VTI 14.2 cm BS CV CPACS RV Mid Dimension 3.8 cm BS CV CPACS LA Diameter 4.4 cm BS CV CPACS LA Volume A/L 49 mL BS CV CPACS LA Volume A-L A4C 52 18 - 58 mL BS CV CPA CS LA Volume A-L A4C 41 18 - 58 mL BS CV CPA CS LA Volume MOD A2C 51 18 - 58 mL BS CV CPA CS LA Volume MOD A4C 39 18 - 58 mL BS CV CPA CS LA Volume BP 47 18 - 58 mL BS CV CPACS RA Volume 40 ml BS CV CPACS AV Area by Peak Velocity 2.0 cm2 BS CV CPACS AV Area by VTI 1.7 cm2 BS CV CPACS AV Peak Gradient 11 mmHg BS CV CPACS AV Mean Gradient 5 mmHg BS CV CPACS AV Peak Velocity 1.7 m/s [facility] CV CPACS AV Mean Velocity 1.1 m/s BS CV CPACS AV VTI 34.6 cm BS CV CPACS MV A Velocity 0.80 m/s BS CV CPACS MV E Wave Deceleration Time 285.9 ms BS CV CPACS MV E Velocity 0.63 m/s BS CV CPACS LV E' Lateral Velocity 8.25 cm/s BS CV CPACS LV E' Septal Velocity 5.88 cm/s BS CV CPACS MV Area by VTI 2.0 cm2 BS CV CPACS MV Peak Gradient 5 mmHg BS CV CPACS MV Mean Gradient 2 mmHg BS CV CPACS MV Max Velocity 1.1 m/s BS CV CPACS MV Mean Velocity 0.6 m/s BS CV CPACS MV VTI 30.2 cm BS CV CPACS TR Peak Gradient 8 mmHg BS CV CPACS TR Max Velocity 1.42 m/s BS CV CPACS Ascending Aorta 3.1 cm BS CV CPACS Aortic Root 3.7 cm BS CV CPACS Fractional Shortening 2D 38 28 - 44 % BS [facility] CPACS LV RWT Ratio 0.65 BS [facility] CPACS LV Mass 2D 186.5 88 - 224 g BS CV CPACS MV E/A 0.79 [facility] CV CPACS E/E' Ratio (Averaged) 9.18 [facility] CV CPACS E/E' Lateral 7.64 [facility] CV CPACS E/E' Septal 10.71 [facility] CV CPACS LVOT Area 4.2 cm2 BS CV CPACS LA/AO Root Ratio 1.19 [facility] CV CPACS AV Velocity Ratio 0.47 [facility] CV [facility]ACS LVOT:AV VTI Index 0.41 [facility] CV CPACS MV:LVOT VTI Index 2.13 BS CV CPACS Est. RA Pressure 3 mmHg [facility] CV CPACS RVSP 11 mmHg BS CV CPACS EF Physician 58 % BS CV CPACS Anatomical Region Laterality Modality Echocardiography Narrative 08/29/2024 12:24 PM EDT Left Ventricle: Normal left ventricular systolic function with a visually estimated EF of 55 - 60%. EF by visual approximation is 58%. EF by 2D Simpsons Biplane is 59%. Left ventricle is smaller than normal. Mildly increased wall thickness. Findings consistent with mild concentric hypertrophy. No regional wall motion abnormalities identified. Decreased sensitivity due to poor endocardial definition. Right Ventricle: Right ventricle size is normal. RV Mid Dimension is 3.8 cm. Appears to be normal systolic function. Aortic Valve: Not well visualized. Mildly calcified noncoronary cusp. Mitral Valve: Mildly thickened leaflets. Tricuspid Valve: Normal RVSP. RVSP is 11 mmHg. Interatrial Septum: Agitated saline study was negative with and without provocation. Aorta: Normal sized ascending aorta. Dilated aortic root. Ao root diameter is 3.7 cm. Aortic Root is 3.7 cm. Ascending Aorta is 3.1 cm. Image quality is adequate. No significant change from prior study 10/25/2022 however unable to appreciate any significant regional wall motion abnormality -by the limits the study. Left Ventricle Normal left ventricular systolic function with a visually estimated EF of 55 - 60%. EF by visual approximation is 58%. EF by 2D Simpsons Biplane is 59%. Left ventricle is smaller than normal. Mildly increased wall thickness. Findings consistent with mild concentric hypertrophy. No regional wall motion abnormalities identified. Decreased sensitivity due to poor endocardial definition. E/E' Ratio (Averaged) is 9.18. Right Ventricle Right ventricle size is normal. RV Mid Dimension is 3.8 cm. Appears to be normal systolic function. Left Atrium Left atrium size is normal. Right Atrium Right atrium size is normal. IVC/SVC IVC diameter is normal or and decreases greater than 50% during inspiration; therefore the estimated right atrial pressure is normal (~3 mmHg). IVC size is normal. Mitral Valve Mildly thickened leaflets. Trace to mild regurgitation. No stenosis noted. Tricuspid Valve Valve structure is normal. Trace regurgitation. No stenosis noted. Normal RVSP. RVSP is 11 mmHg. Aortic Valve Not well visualized. Mildly calcified noncoronary cusp. No regurgitation. No stenosis. Pulmonic Valve The pulmonic valve visualization is suboptimal but appears to be functioning normally. Physiologically normal regurgitation. No stenosis noted. Ascending Aorta Normal sized ascending aorta. Dilated aortic root. Ao root diameter is 3.7 cm. Aortic Root is 3.7 cm. Ascending Aorta is 3.1 cm. Pericardium No pericardial effusion. Septum Agitated saline study was negative with and without provocation. Pulmonary Artery Pulmonary artery was not assessed. Study Details Image quality: adequate. The view(s) performed were parasternal, apical, subcostal and suprasternal. Heart rate was 79 bpm. Color flow Doppler was performed and pulse wave and/or continuous wave Doppler was performed. Saline contrast was given to evaluate for intracardiac shunt. No shunt seen. Bubble study was negative. us Pepe Pal DO CV ECHO ORDERABLES Final R esult * (ABNORMAL) Carboxyhemoglobin (08/24/2024 9:01 AM EDT) Carboxyhemoglobin 25.0(H) 0.0 - 5.0 % 08/24/2024 9:01 AM EDT [facility] 08/24/2024 9:01 AM EDT 08/24/2024 9:02 AM EDT Jacob Hall MD CHEMISTRY ORDERABLES Final Result [facility] [address] [phone] * (ABNORMAL) Blood Gas, Venous (08/24/2024 8:58 AM EDT) pH, Vaibhav 7.362 7.32 - 7.42 08/24/2024 8:58 AM [facility] pCO2, Vaibhav 48.4 39 - 55 mm Hg 08/24/2024 8:58 AM [facility] PO2, Vaibhav 15.8(L) 30.0 - 50.0 mm Hg 08/24/2024 8:58 AM [facility] HCO3, Venous 26.9 24.0 - 30.0 mmol/L 08/24/2024 8:58 AM [facility] Positive Base Excess, Vaibhav 0.5 0.0 - 2.0 mmol/L 08/24/2024 8:58 AM [facility] O2 Sat, Vaibhav 43.2(L) 60.0 - 85.0 % 08/24/2024 8:58 AM [facility] Total Hb 19.7(H) 12.0 - 16.0 g/dl 08/24/2024 8:58 AM [facility] Oxyhemoglobin 32.3(L) 95.0 - 98.0 % 08/24/2024 8:58 AM [facility] Carboxyhemoglobin 24.9(H) 0.0 - 5.0 % 08/24/2024 8:58 AM [facility] Methemoglobin 0.3 0.0 - 1.9 % 08/24/2024 8:58 AM [facility] Pt Temp 37.0 08/24/2024 8:58 AM [facility] pH, Vaibhav, Temp Adj 7.362 7.320 - 7.420 08/24/2024 8:58 AM [facility] pCO2, Vaibhav, Temp Adj 48.4 39.0 - 55.0 mmHg 08/24/2024 8:58 AM [facility] pO2, Vaibhav, Temp Adj 15.8(L) 30.0 - 50.0 mmHg 08/24/2024 8:58 AM [facility] O2 Device/Flow/% ROOM AIR 08/25/19 25 8:58 AM EDT [facility] Medhat Test NOT APPLICABLE 08/24/2024 8:58 AM EDT [facility] FIO2 21 08/24/2024 8:58 AM EDT [facility] 08/24/2024 8:58 AM EDT 08/24/2024 8:59 AM EDT us Jacob Hall MD CHEMISTRY ORDERABLES Final Result [facility] [address] [place] [id number] [phone] * Jak2 Gene Mutation, Quantitative (08/23/2024 8:15 AM EDT) JAK2 QNT, Source Whole Blood 025 8:15 AM EDT [facility] Comment:CORRECTED ON 08/30 A T 1604: PREVIOUSLY REPORTED BLOOD V617F Mutation, Quantitative Not Detected 08/23/2024 8:15 AM EDT [facility] Comment: (NOTE) There is no evidence of the JAK2 V617F mutation by ddPCR analysis. This result does not entirely exclude the possibility that a point mutation exists in the sample below the detection limit of the test (0.2 percent), nor does it exclude mutations other than the V617F mutation. This result has been reviewed and approved by Rosa Maria Marion M.D. INTERPRETIVE INFORMATION: JAK2 (V617F) Mutation by ddPCR, Quant This assay is designed to detect the point mutation c.1849G>T (V617F) of the JAK2 gene. JAK2 V617F mutations are present in patients with myeloproliferative neoplasms. Methodology: DNA from whole blood or bone marrow specimens is amplified in an allele-specific droplet digital PCR (ddPCR) multiplex reaction targeting the JAK2 c.1849G>T single nucleotide mutation encoding the V617F mutation. Results are reported as a percent mutated alleles versus wild type alleles. The limit of detection for this assay is 0.2 percent mutated alleles. Limitations: Variants in genes other than JAK2 are not detected. Variant alleles of JAK2 other than V617F (c.1849G>T) are not reported. Samples with JAK2 V617F mutations below the limit of reporting may not be detected. Results of this test must always be interpreted in the context of morphologic and other relevant data, and should not be used alone for a diagnosis of malignancy. This test is not intended to detect minimal residual disease. This test was developed and its performance characteristics determined by [employer] [facility]. It has not been cleared or approved by the U.[place]> Food and Drug Administration. This test was performed in a CLIA-certified laboratory and is intended for clinical purposes. Performed By: [facility] [address] [place] [address] Return To Vendor: Kranthi Aguillon MD, PhD CLIA Number: [id number] V617 Mutation, Percent 0.0 % 08/23/2024 8:15 AM EDT [facility] Blood Whole 08/23/2024 8:15 AM EDT 08/23/2024 8:19 AM EDT Jacob Hall MD CHEMISTRY ORDERABLES Edite d Result - Final [facility] [address] [place] [address], [facility] [phone] [facility] [address] [place] [address] * Erythropoietin (08/23/2024 8:15 AM EDT) Erythropoietin 7 4 - 27 mU/mL 08/23/2024 8:15 AM EDT [facility] Comment: (NOTE) INTERPRETIVE INFORMATION: Erythropoietin Normal serum concentrations of erythropoietin for 95% of individuals with normal hematocrits range from 4-27 mU/mL. As the hematocrit is lowered by iron deficiency, aplastic, or hemolytic anemia, the concentration of erythropoietin increases as shown in the graph below. In the absence of anemia, elevated concentrations are seen in renal tumors, as a manifestation of renal transplant rejection, and in secondary polycythemia. Low values may be observed in hemochromatosis. Expected Erythropoietin Concentrations in Patients with Uncomplicated Anemia Erythropoietin (mU/mL) 100,000 - + + 10,000 - +....... + ....... 1,000 - + ....... + ........ 100 - + ........ + ........ 10 - + ........ +---+---+---+---+---+---+ 10 20 30 40 50 60 70 (Hematocrit %) (Contributions To Nephrology 1988:66:54-62) Decreased erythropoietin concentrations with an elevated hematocrit are observed in patients with polycythemia rubra vera, and with a decreased hematocrit in patients with HIV infection who are receiving AZT. Patients on AZT who have anemia and erythropoietin concentrations of less than or equal to 500 mU/mL may benefit from therapy with recombinant EPO ([facility] [id number],1989). Performed By: [facility] [address] [place] [address] Return To Vendor: Kranthi Aguillon MD, PhD CLIA Number: [id number] BLOOD SPECIMEN / Unknown 08/23/2024 8:15 AM EDT 08/23/2024 8:19 AM EDT Jacob Hall MD CHEMISTRY ORDERABLES Final Result [facility] [address] [place] [address], [facility] [phone] [facility] [address] [phone] * Vascular ankle brachial index (CHRIS) (08/16/2024 3:17 PM EDT) Anatomical Region Laterality Modality Leg, Ankle, Foot Vascular Ultras ound 08/16/2024 3:17 PM EDT Impressions 08/30/2024 2:43 PM EDT 1. Abnormal resting ankle brachial indices bilaterally. Right ankle-brachial index is 0.60, with absent Doppler signal in the right dorsalis pedis artery. Left ankle-brachial index is 0.68. Remarks: The global hemodynamic condition (severity of disease) of each lower extremity is determined by using the highest tibial vessel Ankle/Brachial Index (CHRIS): Interpretation CHRIS Range No Significant Hemodynamic Impairment 0.97 - 1.39 Consistent with claudication 0.50 - 0.96 Consistent with rest pain 0.21 - 0.49 Consistent with tissue necrosis < 0.20 Evidence of vessel non-compressibility: > 1.40 When possible, toe pressures and toe-brachial Index (TBI) is used for patients with non-compressible tibial arteries because arterial calcification seldom occurs at the digital level. TBI Relationship to Peripheral Arterial Disease: > 0.60 No Significant PAD 0.20 to 0.50 Consistent with Claudication < 0.20 Consistent with Rest Pain Narrative 08/30/2024 2:43 PM EDT Ultrasound arterial evaluation lower extremity with ankle-brachial index HISTORY: Atherosclerosis of extremities with intermittent claudication TECHNIQUE: Systolic blood pressures were obtained of the brachial arteries and arterial vessels of bilateral lower extremities with calculation of ankle-brachial indices. Doppler flow tracings also obtained in the legs. FINDINGS: Comparison: None. RIGHT: The right brachial artery systolic blood pressure is 117 mmHg. The posterior tibialis artery measures a systolic blood pressure of 74 mmHg for an ankle brachial index of 0.60. Monophasic waveforms in the posterior tibial artery. The dorsalis pedis artery measures a systolic blood pressure of 0 mmHg. Absent Doppler in the dorsalis pedis artery. LEFT: The left brachial artery systolic blood pressure is 124 mmHg. Systolic blood pressure of the posterior tibialis artery is 80 mmHg for ankle brachial index of 0.65. Systolic blood pressure of the dorsalis pedis artery is 84 mmHg for an ankle brachial index of 0.68. CHRIS Right side findings: Moderately decreased resting CHRIS. The right posterior tibial artery has monophasic waveforms. The right dorsalis pedis artery Doppler waveforms are absent. Left side findings: Moderately decreased resting CHRIS. The left dorsalis pedis artery has monophasic waveforms. The left posterior tibial artery has poorly biphasic waveforms. Assistant [employer] Operations Details Continuous wave doppler was performed. Overall the study quality was adequate. Procedure Note Murray Schmidt MD - 08/30/2024 Ultrasound arterial evaluation lower extremity with ankle-brachial index HISTORY: Atherosclerosis of extremities with intermittent claudication TECHNIQUE: Systolic blood pressures were obtained of the brachial arteriesand arterial vessels of bilateral lower extremities with calculation of ankle-brachial indices. Doppler flow tracings also obtained in the legs. FINDINGS: Comparison: None. RIGHT: The right brachial artery systolic blood pressure is 117 mmHg. The posterior tibialis artery measures a systolic blood pressure of 74 mmHgfor an ankle brachial index of 0.60. Monophasic waveforms in the posterior tibial artery. The dorsalis pedis artery measures a systolic blood pressure of 0mmHg. Absent Doppler in the dorsalis pedis artery. LEFT: The left brachial artery systolic blood pressure is 124 mmHg.Systolic blood pressure of the posterior tibialis artery is 80 mmHg for anklebrachial index of 0.65. Systolic blood pressure of the dorsalis pedis artery is 84mmHg for an ankle brachial index of 0.68. IMPRESSION: 1. Abnormal resting ankle brachial indices bilaterally. Rightankle-brachial index is 0.60, with absent Doppler signal in the right dorsalis pedisartery. Left ankle-brachial index is 0.68. Remarks: The global hemodynamic condition (severity of disease) of eachlower extremity is determined by using the highest tibial vessel Ankle/BrachialIndex (CHRIS): Interpretation CHRIS Range No Significant Hemodynamic Impairment 0.97 - 1.39 Consistent with claudication 0.50 - 0.96 Consistent with rest pain 0.21 - 0.49 Consistent with tissue necrosis < 0.20 Evidence of vessel non-compressibility: > 1.40 When possible, toe pressures and toe-brachial Index (TBI) is used forpatients with non-compressible tibial arteries because arterial calcificationseldom occurs at the digital level. TBI Relationship to Peripheral Arterial Disease: > 0.60 No Significant PAD 0.20 to 0.50 Consistent with Claudication < 0.20 Consistent with Rest Pain us Nabil Calix MD CV VASCULAR ORDERABLES Final Re sult * Vascular duplex lower extremity arteries right (08/16/2024 3:17 PM EDT) Anatomical Region Laterality Modality Vascular, Thigh, Leg Vascular Ul trasound 08/16/2024 3:17 PM EDT Impressions 08/30/2024 6:34 PM EDT Possible stenosis of the proximal superficial femoral artery. Recommend CTA. Narrative 08/30/2024 6:34 PM EDT EXAM: VAS DUP LOWER EXTREMITY ARTERIES RIGHT HISTORY: Atherosclerosis of extremities with intermittent claudication COMPARISON: None. TECHNIQUE: Grayscale, color Doppler, spectral Doppler waveform analysis was used to evaluate the right lower extremity arteries. FINDINGS: Plaque was noted. No significant velocity elevations were seen to suggest a significant stenosis. However, there is a significant pressure drop from the proximal superficial femoral artery to the mid superficial femoral artery suggesting possible stenosis. Recommend CTA. Right Lower Arterial Distal Common Femoral Artery: Moderate plaque. Poorly biphasic Doppler waveforms. Profunda Artery: Moderate plaque. Monophasic Doppler waveforms. Superficial Femoral Artery: Moderate plaque. Proximal Superficial Femoral Artery: Moderate plaque. Monophasic Doppler waveforms. Middle Superficial Femoral Artery: Moderate plaque. Monophasic Doppler waveforms. Distal Superficial Femoral Artery: Moderate plaque. Monophasic Doppler waveforms. Proximal Popliteal Artery: Moderate plaque. Monophasic Doppler waveforms. Distal Popliteal Artery: Moderate plaque. Monophasic Doppler waveforms. Middle Anterior Tibial Artery: Moderate plaque. Monophasic Doppler waveforms. Middle Posterior Tibial Artery: Moderate plaque. Monophasic Doppler waveforms Middle Peroneal Artery: Severe plaque. Monophasic Doppler waveforms. Assistant Store Manager Operations Details A marc scale, color Doppler imaging and spectral Doppler analysis ultrasound was performed. During the study longitudinal and transverse views were obtained. Pulsed wave doppler was performed. Overall the study quality was good. Procedure Note Vivi Navarro MD - 08/30/2024 EXAM: VAS DUP LOWER EXTREMITY ARTERIES RIGHT HISTORY: Atherosclerosis of extremities with intermittent claudication COMPARISON: None. TECHNIQUE: Grayscale, color Doppler, spectral Doppler waveform analysiswas used to evaluate the right lower extremity arteries. FINDINGS: Plaque was noted. No significant velocity elevations were seento suggest a significant stenosis. However, there is a significant pressuredrop from the proximal superficial femoral artery to the mid superficialfemoral artery suggesting possible stenosis. Recommend CTA. IMPRESSION: Possible stenosis of the proximal superficial femoral artery. RecommendCTA. us Nabil Calix MD CV VASCULAR ORDERABLES Final Re sult * Vascular duplex carotid bilateral (08/16/2024 3:17 PM EDT) Anatomical Region Laterality Modality Vascular, Head Vascular Ultraso und 08/16/2024 3:17 PM EDT Impressions 08/30/2024 2:47 PM EDT 1. Bilateral cervical carotid atherosclerotic plaque, with less than 50% stenosis of both internal carotid arteries. 2. Elevated velocities in the left external carotid artery reflecting hemodynamic significant stenosis. 3. Normal antegrade flow in the vertebral arteries bilaterally. References: Society of Radiologists in Ultrasound (SRU) Consensus Conference, Radiology 2003; 229:340-346 and Rober-julianne et al. Sonographic NASCET index: a new doppler parameter for assessment of internal carotid artery stenosis, A JNR Am J Neuroradiol. 2005; 26(1): 68-75. Narrative 08/30/2024 2:47 PM EDT Ultrasound carotid Duplex Doppler CLINICAL: Carotid atherosclerosis. History of left endarterectomy with reported stent. TECHNIQUE: Marc scale, color flow, duplex Doppler with average peak systolic and end diastolic velocity measurements and spectral analysis examination of both carotid systems was performed. Velocity criteria are extrapolated from diameter data validated with angiographic measurements based on the reference below. The vertebral arteries were also examined. FINDINGS: Comparison: None. RIGHT: Peak systolic velocity in the common carotid artery is 161 cm/sec proximally and 65 cm/sec distally, and that in the carotid bulb is 41 cm/sec. There is plaque in the common carotid artery, carotid bulb, and proximal internal and external carotid arteries. The proximal, mid, and distal segments of the internal carotid artery measure peak systolic velocities of 55 cm/sec, 69 cm/sec, and 82 cm/sec respectively. The end-diastolic velocities in the internal carotid artery are less than 40 cm/sec. The internal carotid to common carotid ratio is 0.7. Peak systolic velocity in the external carotid artery is 137 cm/sec. There is antegrade flow in the vertebral artery. LEFT: Peak systolic velocity in the common carotid artery is 90 cm/sec proximally and 95 cm/sec distally, and the carotid bulb is 111 cm/sec. There is intimal thickening of the common carotid artery with small amount of plaque that is also seen in the carotid bulb and proximal internal and external carotid arteries. The proximal, mid, and distal segments of the internal carotid artery demonstrate peak systolic velocities of 78 cm/sec, 75 cm/sec, and 106 cm/sec respectively. The end-diastolic velocities in the internal carotid artery are less than 40 cm/sec. The internal carotid to common carotid ratio is 1.0. Peak systolic velocity in the external carotid artery is 267 cm/sec. There is antegrade flow in the vertebral artery. Right Carotid Common Carotid Artery: Patent. Intimal thickening present. Homogeneous plaque (prox, mid and distal). Flow is antegrade. Carotid Bulb: Heterogeneous and calcific plaque. Internal Carotid Artery: No stenosis. Minimal and heterogeneous plaque (proximal). Flow is antegrade. External Carotid Artery: Patent. Minimal and heterogeneous plaque (proximal). Flow is antegrade. Vertebral Artery: Flow is antegrade. Left Carotid Common Carotid Artery: Patent. Intimal thickening present. Mild and homogeneous plaque (prox, mid and distal). Flow is antegrade. Carotid Bulb: Heterogeneous and calcific plaque. Internal Carotid Artery: No stenosis. Minimal and heterogeneous plaque (proximal). Flow is antegrade. External Carotid Artery: Elevated velocities are suggestive of hemodynamically significant stenosis. Mild and heterogeneous plaque (prox). Flow is antegrade. Vertebral Artery: Flow is antegrade. Assistant Store Manager Operations Details A marc scale, color Doppler imaging and spectral Doppler analysis ultrasound was performed. During the study longitudinal and transverse views were obtained. Pulsed wave doppler was performed. Overall the study quality was good. Procedure Note Murray Schmidt MD - 08/30/2024 Ultrasound carotid Duplex Doppler CLINICAL: Carotid atherosclerosis. History of left endarterectomy withreported stent. TECHNIQUE: Marc scale, color flow, duplex Doppler with average peaksystolic and end diastolic velocity measurements and spectral analysis examinationof both carotid systems was performed. Velocity criteria are extrapolatedfrom diameter data validated with angiographic measurements based on thereference below. The vertebral arteries were also examined. FINDINGS: Comparison: None. RIGHT: Peak systolic velocity in the common carotid artery is 161 cm/sec proximally and 65 cm/sec distally, and that in the carotid bulb is 41cm/sec. There is plaque in the common carotid artery, carotid bulb, and proximal internal and external carotid arteries. The proximal, mid, and distal segments of the internal carotid arterymeasure peak systolic velocities of 55 cm/sec, 69 cm/sec, and 82 cm/secrespectively. The end-diastolic velocities in the internal carotid artery are less than40 cm/sec. The internal carotid to common carotid ratio is 0.7. Peak systolic velocity in the external carotid artery is 137 cm/sec. There is antegrade flow in the vertebral artery. LEFT: Peak systolic velocity in the common carotid artery is 90 cm/sec proximally and 95 cm/sec distally, and the carotid bulb is 111 cm/sec.There is intimal thickening of the common carotid artery with small amount ofplaque that is also seen in the carotid bulb and proximal internal and external carotid arteries. The proximal, mid, and distal segments of the internal carotid artery demonstrate peak systolic velocities of 78 cm/sec, 75 cm/sec, and 106cm/sec respectively. The end-diastolic velocities in the internal carotid arteryare less than 40 cm/sec. The internal carotid to common carotid ratio is1.0. Peak systolic velocity in the external carotid artery is 267 cm/sec. There is antegrade flow in the vertebral artery. IMPRESSION: 1. Bilateral cervical carotid atherosclerotic plaque, with less than 50% stenosis of both internal carotid arteries. 2. Elevated velocities in the left external carotid artery reflecting hemodynamic significant stenosis. 3. Normal antegrade flow in the vertebral arteries bilaterally. References: Society of Radiologists in Ultrasound (SRU) ConsensusConference, Radiology 2003; 229:340-346 and Ed et al. Sonographic NASCET index:a new doppler parameter for assessment of internal carotid artery stenosis, AJNR Am J Neuroradiol. 2005; 26(1): 68-75. us Nabil Calix MD CV VASCULAR ORDERABLES Final Re sult * US BREAST LIMITED LEFT (08/14/2024 2:25 PM EDT) Anatomical Region Laterality Modality Breast Left Ultrasound 08/14/2024 2:25 PM EDT Impressions 08/14/2024 4:26 PM EDT BIRADS: 2 - Benign, no evidence of malignancy. Normal interval followup is recommended in 12 months. OVERALL ASSESSMENT- BENIGN A letter of notification will be sent to the patient regarding the results. The findings were discussed with the patient. The mild gynecomastia would not explain the patient's marked tenderness. Consider further evaluation of the chest wall, if clinically indicated (in essence, CT scanning). Narrative 08/14/2024 4:26 PM EDT EXAM: US BREAST LIMITED LEFT, [facility] BILATERAL HISTORY: Breast nodule COMPARISON: None. TECHNIQUE: Bilateral digital diagnostic mammogram with CAD. 2-D images with 3-D digital breast tomosynthesis. 2 views of each breast plus a 90-degree mediolateral view of the left breast. Left breast ultrasound focused around the 2 o'clock region in left breast at the area of most pain. FINDINGS: Breasts are almost entirely fatty. There is slight gynecomastia bilaterally in the subareolar regions, benign, symmetric. This would not explain the pain. The ultrasound was normal. Mauricio Mccrary MD [facility] US ORDERABLES Final Result * [facility]SE [facility]BER[facility] DIGITAL DIAGNOSTIC BILATERAL (08/14/2024 2:14 PM EDT) Anatomical Region Laterality Modality Breast Bilateral Mammography 08/14/2024 2:14 PM EDT Impressions 08/14/2024 4:26 PM EDT BIRADS: 2 - Benign, no evidence of malignancy. Normal interval followup is recommended in 12 months. OVERALL ASSESSMENT- BENIGN A letter of notification will be sent to the patient regarding the results. The findings were discussed with the patient. The mild gynecomastia would not explain the patient's marked tenderness. Consider further evaluation of the chest wall, if clinically indicated (in essence, CT scanning). Performing Facility: [place] [address] Narrative 08/14/2024 4:26 PM EDT EXAM: US BREAST LIMITED LEFT, [facility] K[facility] DIGITAL DIAGNOSTIC BILATERAL HISTORY: Breast nodule COMPARISON: None. TECHNIQUE: Bilateral digital diagnostic mammogram with CAD. 2-D images with 3-D digital breast tomosynthesis. 2 views of each breast plus a 90-degree mediolateral view of the left breast. Left breast ultrasound focused around the 2 o'clock region in left breast at the area of most pain. FINDINGS: Breasts are almost entirely fatty. There is slight gynecomastia bilaterally in the subareolar regions, benign, symmetric. This would not explain the pain. The ultrasound was normal. us Mauricio Mccrary MD [facility] MAMMOGRAPHY ORDERABLES Final Result * PSA Screening (08/04/2024 8:23 AM EDT) PSA 0.28 0.00 - 4.00 ng/mL 08/04/2024 8:23 AM EDT [email or web address] Comment: The Bladimir ECLIA assay is used. Results obtained with different assay methods cannot be used interchangeably. Blood BLOOD SPECIMEN / Unknown 08/04/2024 8:23 AM EDT 08/04/2024 8:24 AM EDT Mauricio Mccrary MD CHEMISTRY ORDERABLES Final Resul t Performing Organization Address City/[facility]/ZIP Co de Phone Number [facility] [address] [place] [address], [facility] [phone] [email or web address] [address] [place] [address], [facility] [phone] * TSH reflex to FT4 (08/04/2024 8:23 AM EDT) TSH 2.05 0.27 - 4.20 uIU/mL 08/04/2024 8:23 AM EDT [facility] Blood BLOOD SPECIMEN / Unknown 08/04/2024 8:23 AM EDT 08/04/2024 8:24 AM EDT Mauricio Mccrary MD CHEMISTRY ORDERABLES Final Resul t Performing Organization Address [facility] de Phone Number [facility] [address] [place] [address], [facility] [phone] * (ABNORMAL) Albumin/Creatinine Ratio, Urine (08/04/2024 8:23 AM EDT) Albumin Urine 184(H) 0 - 20 mg/L 08/04/2024 8:23 AM EDT [facility] Creatinine, Ur 132.0 39.0 - 259.0 mg/dL 08/04/2024 8:23 AM EDT [facility] Comment:Reference range defi travis for 1st morning urine Microalb/Estimator Binding. Ratio 139(H) 0.0 - 17.0 mcg/mg creat 08/04/2024 8:23 AM EDT [facility] Urine (Urine) 08/04/2024 8:2 3 AM EDT 08/04/2024 8:24 AM EDT Mauricio Mccrary MD URINE ORDERABLES Final Result Performing Organization Address City/[facility]/ZIP Co de Phone Number [facility] [address] [place] [address], [facility] [phone] [facility] [address] [place] [address], [facility] [phone] * (ABNORMAL) Hemoglobin A1C (08/04/2024 8:23 AM EDT) Hemoglobin A1C 6.9(H) 4.0 - 6.0 % 08/04/2024 8:23 AM EDT [facility] Estimated Avg Glucose 151 mg/dL 08/04/2024 8:23 AM EDT [facility] Comment: The ADA and AACC recommend providing the estimated average glucose result to permit better patient understanding of their HBA1c result. Blood BLOOD SPECIMEN / Unknown 08/04/2024 8:23 AM EDT 08/04/2024 8:24 AM EDT us Mauriciosean Mccrary MD CHEMISTRY ORDERABLES Final Resul t [facility] [address] [place], [place] [address] [phone] [phone] * (ABNORMAL) Lipid Panel (08/04/2024 8:23 AM EDT) Cholesterol, Total 179 0 - 199 mg/dL 08/04/2024 8:23 AM EDT [facility] Comment: Cholesterol Guidelines: <200 Desirable 200-240 Borderline >240 Undesirable HDL 39(L) >40 mg/dL 08/04/2024 8:23 AM EDT [facility] Comment: HDL Guidelines: <40 Undesirable 40-59 Borderline >59 Desirable LDL Cholesterol 120(H) 0 - 100 mg/dL 08/04/2024 8:23 AM EDT [facility] Comment: LDL Guidelines: <100 Desirable 100-129 Near to/above Desirable 130-159 Borderline >159 Undesirable Direct (measured) LDL and calculated LDL are not interchangeable tests. Chol/HDL Ratio 4.6 08/04/2024 8:23 AM EDT [facility] Triglycerides 102 <150 mg/dL 08/04/2024 8:23 AM EDT [facility] Comment: Triglyceride Guidelines: <150 Desirable 150-199 Borderline 200-499 High >499 Very high Based on AHA Guidelines for fasting triglyceride, January 2012. VLDL 20 1 - 30 mg/dL 08/04/2024 8:23 AM EDT [facility] Blood BLOOD SPECIMEN / Unknown 08/04/2024 8:23 AM EDT 08/04/2024 8:24 AM EDT us Mauricio Mccrary MD CHEMISTRY ORDERABLES Final Resul t [facility] [address] [place] [address], [facility] [phone] [facility] [address] [place], [place] [address] [phone] * (ABNORMAL) Comprehensive Metabolic Panel (08/04/2024 8:23 AM EDT) Sodium 138 135 - 144 mmol/L 08/04/2024 8:23 AM EDT [facility] Potassium 4.8 3.7 - 5.3 mmol/L 08/04/2024 8:23 AM EDT [facility] Chloride 100 98 - 107 mmol/L 08/04/2024 8:23 AM EDT [facility] CO2 26 20 - 31 mmol/L 08/04/2024 8:23 AM EDT [facility] Anion Gap 12 9 - 17 mmol/L 08/04/2024 8:23 AM [employer] [facility] Glucose 172(H) 70 - 99 mg/dL 08/04/2024 8:23 AM EDT [facility] BUN 12 8 - 23 mg/dL 08/04/2024 8:23 AM EDT [facility] Creatinine 1.0 0.7 - 1.2 mg/dL 08/04/2024 8:23 AM EDT [facility] Est, Glom Filt Rate 86 >60 mL/min/1.7 3m2 08/04/2024 8:23 AM EDT [facility] Comment: These results are not intended for use in patients <18 years of age. eGFR results are calculated without a race factor using the 2020 CKD-EPI equation. Careful clinical correlation is recommended, particularly when comparing to results calculated using previous equations. The CKD-EPI equation is less accurate in patients with extremes of muscle mass, extra-renal metabolism of creatine, excessive creatine ingestion, or following therapy that affects renal tubular secretion. Calcium 10.0 8.6 - 10.4 mg/dL 08/04/2024 8:23 AM EDT [facility] Total Protein 7.5 6.4 - 8.3 g/dL 08/04/2024 8:23 AM EDT [facility] Albumin 4.3 3.5 - 5.2 g/dL 08/04/2024 8:23 AM EDT [facility] Albumin/Globulin Ratio 1.3 1.0 - 2.5 08/04/2024 8:23 AM EDT [facility] Total Bilirubin 0.5 0.3 - 1.2 mg/dL 08/04/2024 8:23 AM EDT [facility] Alkaline Phosphatase 113 40 - 129 U/L 08/04/2024 8:23 AM EDT [facility] ALT 15 5 - 41 U/L 08/04/2024 8:23 AM EDT [facility] AST 16 <40 U/L 08/04/2024 8:23 AM EDT [facility] Blood BLOOD SPECIMEN / Unknown 08/04/2024 8:23 AM EDT 08/04/2024 8:24 AM EDT us Mauricio Back CHEMISTRY ORDERABLES Final Resul t [facility] [address] [place] [address], [facility] [phone] from Last 3 Months Insurance Nabto ANSLEY Care Teams Roustabout Crew Pusher Relationship Specialty Start Date End Date Back, MD Mauricio [address] [place] [address] PCP - General Internal Medicine 07/31/24
--- OUTSIDE RECORDS SUMMARY | 2024-10-22 09:10 | XMS_ITS | Encounter Summary ---
Author Organization [facility] Address [address] [place] [address] Care Team Providers Care Stripper Latex Name Role Phone Mauricio Mccrary MD Primary Care Provider [phone] Encounter Details Date Type Department Care Team (Late st Contact Info) Description 08/14/2024 Results Follow-Up [facility] Internal Medicine [address] [place] [address] Mauricio Mccrary MD [address] [place], [place] [id number] Social History Tobacco Use Types Packs/Day Years Used Date Smoking Tobacco: Former Cigarettes 1978 Cigars Smokeless Tobacco: Never Comments:Occasional cigars c urrently Alcohol Use Standard Drinks/Week Comments Never 0 (1 standard drink = 0.6 oz pur e alcohol) [facility] Utilities Answer Date Recorded In the past 12 months has [employer], [employer], oil, or water [employer] threatened to shut off services in your [...] any time in the past 12 m [facility], were you homeless or living in a snf (including now)? No 08/03/2024 Food Insecurity Answer [...] on file documented as of this encounter Functional Status documented as of this encounter Plan of Treatment Upcoming Encounters Date Type Department Care Team (Latest Contact Info) Description 10/22/2024 12:30 PM EDT Hospital Encounter [facility] OP Nursing [address] [place] [address] 11/12/2024 10:40 AM EDT Office Visit [facility] [address] [place] [address] Lanie Mansfield, OPERATING TABLE ASSEMBLER - [employer] [address] [place] [address] 3 mo 12/12/2024 1:15 PM EDT Office Visit [facility] Part of [address] [address] Joao Ross MD [address] [place] [address] F/U 02/06/2025 10:45 AM EDT Office Visit [facility] VASCULAR Part of [address] [place] [address] Nabil Calix MD [address] [place] [address] [address] [place] [address] 6 month follow up; PAD, MARY 02/19/2025 10:00 AM EDT Office Visit [facility] Hatchery Helper [address] [place] [id number] Pepe Pal DO [address] [place] [address] 6 month f/u documented as of this encounter Visit Diagnoses Not on filedocumented in this encounter Care Teams Stripper Latex Relationship Specialty Start Date End Date Back, MD Mauricio [address] [place] [address] PCP - General Internal Medicine 07/31/24 documented as of this encounter
--- OUTSIDE RECORDS SUMMARY | 2024-10-22 09:10 | XMS_ITS | Encounter Summary ---
Author Organization [facility] Address [address] [place] [address] Care Team Providers Care Retail Presentation Specialist Name Role Phone Mauricio Mccrary MD Primary Care Provider [phone] Encounter Details Date Type Department Care Team (Late st Contact Info) Description 08/15/2024 Orders Only [facility] Shingles Roofer Helper [address] [place] [address] Provider, MD Johnathan Social History Tobacco Use Types Packs/Day Years Used Date Smoking Tobacco: Former Cigarettes - 1978 Cigars Smokeless Tobacco: Never Comments:Occasional cigars c urrently Alcohol Use Standard Drinks/Week Comments Never 0 (1 standard drink = 0.6 oz pur e alcohol) [facility] Utilities Answer Date Recorded In the past 12 months has e electric, gas, oil, or water company threatened to shut off services in your home? No 08/03/2024 AUDIT-C Answer Date Recorded Q1: How often do you have a drink containing alcohol? Never 07/13/2024 Q2: How many drinks containi ng alcohol do you have on a typical day when you are drinking? Patient does not drink Q3: How often do you have si x or more drinks on one occasion? Never 07/13/2024 PHQ-2 Answer Date Recorded PHQ-9 Total Score [...] any time in the past 12 m [facility], were you homeless or living in a fdc (including now)? No 08/03/2024 Food Insecurity Answer [...] MW OP Nursing [address] [place] [address] 11/12/2024 10:40 AM EDT Office Visit [facility] [address] [place] [address] Lanie Mansfield, APARTMENT MANAGER - MACHINE FILLER SERVICER [address] [place] [address] 3 mo 12/12/2024 1:15 PM EDT Office Visit [facility] Part of [address] [address] Joao Ross MD [address] [place] [address] F/U 02/06/2025 10:45 AM EDT Office Visit [facility] VASCULAR Part of [address] [place] [address] Nabil Calix MD [address] [place] [address] [address] [place] [address] 6 month follow up; PAD, MARY 02/19/2025 10:00 AM EDT Office Visit [facility] Shingles Roofer Helper [address] [place] [address] Pepe Pal DO [address] [place] [address] 6 month f/u documented as of this encounter Procedures Procedure Name Priority Date/Time Associated Diagnosis Comments EKG 12-LEAD Routine 10/24/2022 1:50 PM EDT documented in this encounter Results * EKG 12 Lead (10/24/2022 1:50 PM EDT) us Historical Provider ECG ORDERABLES Final Res ult documented in this encounter Visit Diagnoses Not on filedocumented in this encounter Care Teams Retail Presentation Specialist Relationship Specialty Start Date End Date Back, MD Mauricio [address] [place] [address] PCP - General Internal Medicine 07/31/24 documented as of this encounter
--- OUTSIDE RECORDS SUMMARY | 2024-10-22 09:10 | XMS_ITS | Clinical Summary ---
Author Organization [facility] Address [address] [place] [address] Care Team Providers Care Machining And Assembly Supervisor Name Role Phone System, Provider Not In Primary Care Provider Un available Allergies No known active allergies Medications metFORMIN (GLUCOPHAGE) 500 MG tablet Take 500 mg by mouth 2 (two) times a day. Active aspirin 81 MG EC tablet Take 1 (one) tablet (81 mg total) by mouth daily. 30 tablet 11/23/2017 Active atorvastatin (LIPITOR) 80 MG tablet Take 1 (one) tablet (80 mg total) by mouth daily. 30 tablet 11/23/2017 Active clopidogrel (PLAVIX) 75 mg tablet Take 1 (one) tablet (75 mg total) by mouth daily. 30 tablet 11/23/2017 Active lisinopril (PRINIVIL,ZESTRI L) 5 MG tablet Take 1 (one) tablet (5 mg total) by mouth daily. 30 tablet 11/23/2017 Active carvedilol (COREG) 3.125 MG tablet Take 1 (one) tablet (3.125 mg total) by mouth 2 (two) times a day. 60 tablet 11/23/2017 Active Active Problems No known active problems Encounters Date Type Department Care Team Description 08/13/2024 JUL[facility] Historical Mapping [place] System, Provider Not In from Last 3 Months Family History Medical History Relation Comments Heart attack Father Heart attack Mother Relation Status Comments Father Mother Social History Tobacco Use Types [...] Sign Reading Time Taken Comments Blood Pressure 164/95 11/23/2017 9:50 AM EDT Pulse 107 11/23/2017 9:50 AM EDT Temperature - - Respiratory Rate 16 11/23/2017 9:50 AM EDT Oxygen Saturation 95% 11/23/2017 9:50 AM EDT Inhaled Oxygen Concentration - - Weight 87.5 kg (193 lb) 11/23/2017 9:50 AM EDT Height - - Body Mass Index - - Plan of Treatment Health Maintenance Due Date Last Done Comments CT Colonography 1963 Colonoscopy 1963 Colorectal Cancer Screening/Monitoring 1963 Fecal DNA 1963 Fecal occult blood test (FOBT,FIT) 1963 PSA Level 1963 Tetanus: Every 10yrs 1963 Wellness Visit 07/26/1966 Depression Screening/Follow-Up (PHQ-2/9) 1975 HIV Screening 07/26/1978 Hepatitis C Screening 07/26/1981 Zoster Vaccines (1 of 2) 07/26/2013 Pneumococcal Vaccine: Age 50 + (2 of 2 - PCV) 03/05/2021 03/05/2020 COVID-19 Vaccine ( - season) 2023, 08/20/2020 Influenza Vaccine (Season Ended) 2024 Respiratory Syncytial Virus Immunization: Risk, 60-74 Risk, or 75+ (1 - 1-dose 75+ series) 07/26/2038 Insurance [employer] Care Teams Machining And Assembly Supervisor Relationship Specialty Start Date End Date System, Provider Not In PCP - General 06/27/20
--- NOTE | 2024-10-22 10:00 | CA_ITS ---
Patient Name: NILO ALLEN MR#: [id number] : 1965 Exam Date: 10/22/2024 Ordering Doctor: DR. BARRIE WANG ECHOCARDIOGRAM REPORT PROCEDURE: CA ECHO DOPPLER COMPLETE INDICATIONS: Ischemic heart disease, OR, cardiac stents, mild COPD, stroke, smoker, h/o rheumatic fever COMPARISON: None. DESCRIPTION: COMPLETE ECHOCARDIOGRAM Real-time transthoracic echocardiography with 2D, M-mode, spectral and color flow Doppler performed. QUALITY: Technical quality was good. LEFT VENTRICLE: Normal chamber size. Proximal septal hypertrophy (sigmoid septum). There is akinesis of the basal inferior wall and basal inferior septum. The rest of the segments appear to contract well. Global systolic function is normal. Estimated left ventricular ejection fraction is 55%. LV EF: Normal left ventricular ejection fraction, (55%). DIASTOLIC: Diastolic function is indeterminate. ATRIAL SEPTUM: Visually appears intact. LEFT ATRIUM: Normal chamber size. RIGHT ATRIUM: Normal chamber size. RIGHT VENTRICLE: Normal chamber size. Normal right ventricular systolic function. TRICUSPID VALVE: Normal mobility and thickness. No stenosis with no regurgitation. Unable to assess right-sided pressures due to lack of measurable tricuspid regurgitation. MITRAL VALVE: Normal mobility and thickness. No evidence of mitral valve stenosis. There is no mitral annular calcification. Trivial mitral regurgitation. AORTIC VALVE: Normal trileaflet appearance. No evidence of aortic valve stenosis. Noncoronary cusp appears moderately calcified with decreased mobility. No aortic regurgitation. AORTIC ROOT: Normal diameter and appearance, measuring 3.7 cm. Ascending aorta is normal in size, measuring 3.1 cm. PULMONIC VALVE: Normal thickness and mobility. No stenosis. No regurgitation. PERICARDIUM: No evidence of pericardial effusion. IVC: IVC is dilated (2.4 cm), does not fully collapse. PLEURA: CONCLUSION: 1. The left ventricle is normal in size and exhibits akinesis of the basal inferior wall and inferior septum with good contractility of the remaining segments. Global left ventricular systolic function is normal. Estimated LVEF is 55%. 2. Normal right ventricular size and systolic function. 3. Calcified aortic valve without stenosis or regurgitation. 4. No significant valvular dysfunction. 5. Unable to assess right-sided pressures due to lack of measurable tricuspid regurgitation. Adult Echocardiography Procedure Report Left Ventricle LVEDD (3.7 - 5.6 cm): 5.08 cm LVESD (2.2 - 4.0 cm): 3.82 cm LVIVS thickness (0.6 - 1.2 cm): 1.76 cm LVPW thickness (0.5 - 1.0 cm): 1.03 cm e': 0.06 m/s E - e': 8.24 LVOT Max Gradient: 1.74 mm[Hg] LVOT Area (cm2): 0.66 m/s Peak Velocity (LVOT): 0.66 m/s Mean Velocity (LVOT): 0.46 m/s LVOT Diameter 2.72 cm Left Ventricular Ejection Fraction: 55 % Left Atrium LA Volume Index (2D A2C): 27.88 ml/m2 Left Atrium Systolic Dimension: 3.83 cm Mitral Valve MV E to A Ratio: 0.53 Mitral Valve A-Wave Peak Velocity: 0.92 m/s Mitral Valve E-Wave Peak Velocity: 0.49 m/s Right Ventricle Aorta AO Root Diam: 3.73 cm Ascending Ao Diam: 3.07 cm Aortic Valve AoV Area (Peak Lester): 2.67 cm2, 2.67 cm2 AoV Area (VTI): 3.11 cm2, 3.11 cm2 Peak Velocity(Antegrade Flow): 1.44 m/s Peak Gradient(Antegrade Flow): 8.29 mm[Hg] Mean Velocity(Antegrade Flow): 0.92 m/s Mean Gradient(Antegrade Flow): 4.00 mm[Hg] Velocity Time Integral: 30.04 cm Tricuspid Valve Pulmonic Valve Peak Gradient: 2.31 mm[Hg], 2.02 mm[Hg] Right Atrium Right Atrium Systolic Pressure: 40.91 ml, 40.91 ml Dictated by: Greg Ramsey M.D. on 10/22/2024 at 17:46 Approved by: Greg Ramsey M.D. on 10/22/2024 at 17:53
--- OUTSIDE RECORDS SUMMARY | 2024-10-22 12:30 | XMS_ITS | Encounter Summary ---
Author Organization [facility] Address [address] [place] [address] Care Team Providers Care [employer] Worker Name Role Phone Mauricio Mccrary MD Primary Care Provider [phone] Encounter Details Date Type Department Care Team (Late st Contact Info) Description 10/22/2024 12:30 PM EDT Hospital Encounter [facility] [address] [place] [address] Social History Tobacco Use Types Packs/Day Years Used Date Smoking Tobacco: Every Day Cigarettes Started: 2020; Last attempted to quit: 1978 Cigars Smokeless Tobacco: Never Comments:Occasional cigars c urrently Alcohol Use Standard Drinks/Week Comments Never 0 (1 standard drink = 0.6 oz pur e alcohol) [facility] Utilities Answer Date Recorded In [...] any time in the past 12 m [facility], were you homeless or living in a senior living (including now)? No 08/03/2024 Food Insecurity Answer [...] Upcoming Encounters Date Type Department Care Team (Late st Contact Info) Description 11/12/2024 10:40 AM EDT Office Visit [facility] [address] [place] [address] Lanie Mansfield, SIDE SHOW ENTERTAINER - MAKE UP OPERATOR [address] [place] [address] 3 mo 12/12/2024 1:15 PM EDT Office Visit [facility] Part of [address] [address] Joao Ross MD [address] [place] [address] F/U 02/06/2025 10:45 AM EDT Office Visit [facility] Part of [address] [place] [address] Nabil Calix MD [address] [place] [address] [address] [place] [address] 6 month follow up; PAD, MARY 02/19/2025 10:00 AM EDT Office Visit [facility] Scuba Instructor [address] [place] [address] Pepe Pal DO [address] [place] [address] 6 month f/u documented as of this encounter Visit Diagnoses Not on filedocumented in this encounter Care Teams [employer] Worker Relationship Specialty Start Date End Date Back, MD Mauricio [address] [place] [id number] PCP - General Internal Medicine 07/31/24 documented as of this encounter
== END 2024-10-22 09:05 | disposition home or self-care (01) ==
LOC: CARD 09:08
PROVIDERS: PCP Internal Medicine; Visit Provider Chiropractor
DX: I25.9 Chronic ischemic heart disease, unspecified (principal)
CPT/HCPCS: 93306